=== PATIENT | male | born 1955 | race Caucasian/White ===

== ENCOUNTER 2017-10-06 10:39 | Observation (INO) | payer OTHER ==
[2017-10-06 12:10] LABS: Bilirubin Negative (Negative); Blood, Urine Negative (Negative); Glucose, Urine (Dipstick) Negative (Negative); Ketone, Urine Negative (Negative); Nitrite Negative (Negative); Protein, Urine (Dipstick) Negative (Neg-Trace); Urobilinogen 0.2 mg/dL (0.2-1.0)
[2017-10-06 12:15] LABS: #Basophils 0.2 thou/uL (0.0-0.2); #Eosinphils 0.2 thou/uL (0.0-0.7); #Lymphocytes 1.1 thou/uL (1.20-3.40); #Monocytes 0.7 thou/uL (0.11-0.59); #Neutrophils 10.8 thou/uL (1.40-6.50); %Basophils 1.7 % (0.0-1.0); %Eosinophils 1.2 % (0.0-10.0); %Lymphocytes 8.2 % (21.0-51.0); %Monocytes 5.1 % (0.0-10.0); Hematocrit 45.2 % (42.0-52.0); Mean Platelet Volume 8.5 fL (7.4-10.4); Red Blood Cell (RBC) Count 4.72 mill/uL (4.70-6.10); White Blood Cell (WBC) Count 12.9 thou/uL (4.8-10.8)
--- NOTE | 2017-10-06 12:22 | RAD ---
PORTABLE AP CHEST: Date: 10/06/17 HISTORY: Dizziness and nausea. COMPARISON: 06/20/17. FINDINGS: Postsurgical changes related to median sternotomy are again present. Cardiac silhouette is magnified by projection. Pulmonary vasculature is within normal limits. Lungs remain clear. There has been no i nterval change when compared to the prior exam. IMPRESSION: No acute cardiopulmonary process. POS: [facility]
[2017-10-06 12:41] LABS: ALT (SGPT) 17 U/L (8-55); AST (SGOT) 14 U/L (5-34); Alkaline Phosphatase 135 U/L (40-150); Anion Gap 12 mmol/L (10-20); BUN (Urea Nitrogen) 25 mg/dL (8.4-25.7); Bilirubin, Total 0.4 mg/dL (0.2-1.2); CK (CPK) 57 U/L (30-200); Calc. Creatinine Clearance 0 mL/min (70-130); Calcium 9.5 mg/dL (7.8-10.44); Carbon Dioxide 25 mmol/L (23-31); Chloride 104 mmol/L (98-107); Estimated GFR-MDRD 68; Globulin 3.9 g/dL (2.4-3.5); Lipase 11 U/L (8-78); Magnesium 2.5 mg/dL (1.6-2.6); Protein, Total 7.8 g/dL (5.8-8.1)
[2017-10-06 12:44] LABS: Troponin I Less than 0.010 ng/mL (< 0.028)
--- NOTE | 2017-10-06 13:11 | CT ---
HEAD CT WITHOUT CONTRAST: DATE: 10/06/17. COMPARISON: 02/05/12. HISTORY: Dizziness, weakness, and nausea. TECHNIQUE: Serial axial CT imaging at 5 mm intervals from vertex through the skull base without contrast. FINDINGS: No displaced calvarial fracture. No intracranial hemorrhage, midline shift, mass effect, or ventricu lar enlargement. IMPRESSION: No acute findings - stable head CT. POS: [facility]
[2017-10-06 14:07] LABS: Lactic Acid - Sepsis 1.5 mmol/L (0.5-2.2)
--- NOTE | 2017-10-06 15:21 | HP ---
PRIMARY CARE PROVIDER: FERNY Evans Referred to [facility] by [facility]. HISTORY OF PRESENT ILLNESS: The patient presented with a few hours of dizziness, some nausea, just f elt sick, then he had a sweat started about 8:00 a.m. today, states he still has a little bit of dizz iness. He says there was a little whirling, but it was not like the room was turning. He had no jah st pain, no shortness of breath. PAST MEDICAL HISTORY: Pertinent for coronary artery disease, coronary artery bypass graft in 2013. He states he has had 11 stents placed in. He had colon cancer in 2012 that was resected by Dr. Brett fields. He has hypertension, history of paroxysmal atrial fibrillation, gastroesophageal reflux disease, dyslipidemia. CURRENT MEDICATIONS: Plavix 75 mg a day, lisinopril 20 mg twice a day, Coreg 6.25 mg twice a day, La six 20 mg a day, aspirin 325 mg a day. ALLERGIES: AMBIEN, HYDROCODONE, DEMEROL, and PENICILLIN. SOCIAL HISTORY: Lives alone. No tobacco, no alcohol, occasionally uses marijuana He is . CODE STATUS: FULL. No surrogate decision maker. FAMILY HISTORY: Mother had breast cancer. Father in an MVA. He has multiple siblings with hea rt disease and diabetes. REVIEW OF SYSTEMS: General: No headaches or fainting. Eyes: No double vision, blurred vision, fla shing lights. Ears, Nose, and Throat: No ear pain or drainage. No nasal bleeding. No trouble swal lowing. No oral pain. Cardiac: No chest pain, orthopnea, or paroxysmal nocturnal dyspnea. Respira tory: No cough, wheezing, or asthma. Gastrointestinal: He has had no emesis, no abdominal pain, an d no diarrhea to along with his present illness. No melena. Genitourinary: No hematuria, dysuria, or frequency. Musculoskeletal: He states he swells in his legs when he does not have to take his La six. No particular discomforts or pain in his extremities at this time. Neurological: No strokes, seizures, or focal weakness. Psychiatric: No anxiety or depression. I discussed this with him at [facility], because his old records list anxiety, depression; he states he has none. Skin: He has got so me, what he calls old age, spots on his arms. No ecchymoses, no petechiae, no rash. Skin is warm an d dry. Heme/Lymph: He reports no tender or swollen lymph nodes under his arms or neck or his groin. PHYSICAL EXAMINATION: GENERAL: He is an alert, pleasant gentleman, in no distress. VITAL SIGNS: Blood pressure 145/86, pulse 62, respirations 20, temperature 97.8, O2 sat 95 on room a ir. EXAMINATION OF HEAD, EYES, EARS, NOSE, AND THROAT: Pupils are equal, round, and reactive to light. Extraocular movements are intact. Sclerae white. Tympanic membranes clear. Nose is clear. Oral mu cous membranes are wet. Dental hygiene is adequate. NECK: Supple, without jugular venous distention, adenopathy, thyromegaly. CHEST: Clear to auscultation and percussion. HEART: Regular rate and rhythm. First and second heart sounds are clear. There are no appreciated murmurs or gallops. ABDOMEN: Soft. Bowel sounds are normal. There is no hepatosplenomegaly, no mass, no rebound, no br uits. EXTREMITIES: Reveal no cyanosis, clubbing, or edema. PULSES: Carotid, radial, femoral, and dorsalis pedis pulses were palpable and symmetric. SKIN: Warm and dry without bruises or rash. HEME/LYMPH: Reveals no tender or swollen lymph nodes in the inguinal, cervical, or axillary region. NEUROLOGICAL: Reveals cranial nerves II-XII are intact. Deep tendon reflexes symmetric. Strength s ymmetric. LABORATORY AND X-RAY FINDINGS: EKG: Regular sinus rhythm with no acute ST-T abnormality. He does h ave a T-wave inversion in V2, reviewed by me. Chest x-ray, postop changes of median sternotomy. No cardiomegaly, no CHF, no infiltrate, reviewed by me. Comprehensive metabolic profile normal except f or a glucose of 145, CK-MB 1.5, troponin less than 0.01. BNP 37.7. Urine is clear. White count 12. 9, hemoglobin 14.5, platelet count 280,000. ADMITTING DIAGNOSES: 1. Acute onset dizziness. 2. Coronary artery disease. 3. Hypertension. 4. Dyslipidemia. PLAN: Telemetry, serial cardiac enzymes, repeat CBC and basic metabolic profile in the morning. Shruti ected home medicines. Continue aspirin.
[2017-10-06 15:55] LABS: Troponin I Less than 0.010 ng/mL (< 0.028)
[2017-10-06 17:57] VITALS: BMI 34.2
[2017-10-06] MEDS ORDERED: Ondansetron HCl/PF 4 MG/2 ML Vial IVP PRN (18:04)
[2017-10-06] MEDS ORDERED: Acetaminophen 325 MG TAB PO PRN (18:04)
[2017-10-06] MEDS: Carvedilol 6.25 MG TAB PO SCH (19:34)
[2017-10-06] MEDS: Lisinopril 20 MG TAB PO SCH (20:34)
[2017-10-06] MEDS ORDERED: Atorvastatin Calcium 40 MG TAB PO SCH (21:00)
[2017-10-06 21:13] LABS: Troponin I Less than 0.010 ng/mL (< 0.028)
[2017-10-07] MEDS ORDERED: traMADol HCl 50 MG TAB PO PRN (00:22)
[2017-10-07] MEDS ORDERED: Aspirin 325 MG TAB PO SCH ×3 (00:30→09:00)
[2017-10-07 01:07] LABS: Troponin I Less than 0.010 ng/mL (< 0.028)
[2017-10-07 05:06] LABS: Anion Gap 11 mmol/L (10-20); BUN (Urea Nitrogen) 26 mg/dL (8.4-25.7); Calc. Creatinine Clearance 116 mL/min (70-130); Carbon Dioxide 25 mmol/L (23-31); Chloride 102 mmol/L (98-107); Estimated GFR-MDRD 70
[2017-10-07 07:36] LABS: #Eosinphils 0.6 thou/uL (0.0-0.7); #Lymphocytes 2.4 thou/uL (1.20-3.40); #Monocytes 0.9 thou/uL (0.11-0.59); %Eosinophils 5.3 % (0.0-10.0); %Lymphocytes 20.4 % (21.0-51.0); %Monocytes 7.8 % (0.0-10.0); Hematocrit 42.6 % (42.0-52.0); Mean Platelet Volume 8.4 fL (7.4-10.4); Red Blood Cell (RBC) Count 4.55 mill/uL (4.70-6.10)
[2017-10-07 08:13] VITALS: BP 134/82; TEMP 97.7
--- NOTE | 2017-10-07 08:57 | DIS ---
PRIMARY CARE PROVIDER: Birgit Leigh DATE OF ADMISSION: 10/06/2017 DATE OF DISCHARGE: 10/07/2017 DISCHARGE DISPOSITION: Discharged home. FINAL DIAGNOSES: 1. Dizziness. 2. Hypertension. 3. Coronary artery disease. 4. Dyslipidemia. DISCHARGE MEDICATIONS: Pristiq 50 mg daily, aspirin 325 mg daily, Protonix 40 mg a day, Zestril 20 m g twice a day, Lasix 20 mg a day, Plavix 75 mg a day, Coreg 12.5 mg twice a day, Lipitor 40 mg a day, tramadol 25 mg p.o. q.i.d. p.r.n. ALLERGIES: DEMEROL, CODEINE, AMBIEN, PENICILLINS. CODE STATUS: Full. PENDING AT THE TIME OF DISCHARGE: Nothing. HOSPITAL COURSE: The patient referred to the [facility] by [facility] after presenting with a few hours of dizziness, a little nausea, a little sweat. He did not describe true vertigo. The patient stated that is what it felt like when he had his heart attack. He was re ferred to the [facility] for cardiac evaluation by the emergency room. His EKG reveal ed an inverted T-wave in V2, otherwise unremarkable. Cardiac enzymes were normal x4. Basic metaboli c profile revealed a sodium 134, creatinine of 26, otherwise normal. CBC showed a mild leukocytosis without a left shift of 12 to 12.9, hemoglobin 14.5 plus or minus, platelet count 280 and 252. The p atient has had no chest pain. He has some minimal dizziness. CONSULTATIONS: None. PROCEDURES: No procedures. Cardiac exam is normal. Vital signs have been stable. He has been discharged, told that he needs to see his PCP within a week. This morning he complains o f a toothache and asked for pain medicine. I have written a prescription for tramadol 25 mg q.i.d. p .r.n. for pain. He has been told that he needs to follow up with his PCP or a dentist for his tootha jah.
[2017-10-07] MEDS: Lisinopril 20 MG TAB PO SCH (08:59)
[2017-10-07] MEDS: Carvedilol 6.25 MG TAB PO SCH (08:59)
[2017-10-07] MEDS ORDERED: Clopidogrel Bisulfate 75 MG TAB PO SCH (09:00)
[2017-10-07] MEDS ORDERED: Furosemide 20 MG TAB PO SCH (09:00)
== END 2017-10-07 13:15 | disposition home or self-care (01) ==
LOC: ERS 10:39 → ERHOLD 14:35 → 2SE 17:37
PROVIDERS: ADMIT Internal Medicine; ATTEND Internal Medicine
DX: R42 Dizziness and giddiness (principal); I10 Essential (primary) hypertension; I25.10 Atherosclerotic heart disease of native coronary artery without angina pectoris; E78.5 Hyperlipidemia, unspecified; I48.0 Paroxysmal atrial fibrillation; K21.9 Gastro-esophageal reflux disease without esophagitis; Z79.02 Long term (current) use of antithrombotics/antiplatelets; Z79.82 Long term (current) use of aspirin; Z79.899 Other long term (current) drug therapy; Z88.5 Allergy status to narcotic agent; Z88.0 Allergy status to penicillin; Z88.8 Allergy status to other drugs, medicaments and biological substances; Z95.1 Presence of aortocoronary bypass graft; Z95.818 Presence of other cardiac implants and grafts; Z90.49 Acquired absence of other specified parts of digestive tract; Z85.038 Personal history of other malignant neoplasm of large intestine
CPT/HCPCS: 36415; 70450; 71010; 80048; 80053; 81003; 82550; 82553; 83605; 83690; 83735; 83880; 84484; 85025; 87040; 93005; G0378

== ENCOUNTER 2018-02-07 03:56 | Emergency (ER) | payer OTHER ==
[2018-02-07 05:17] LABS: #Eosinphils 0.2 thou/uL (0.0-0.7); #Lymphocytes 0.9 thou/uL (1.20-3.40); #Monocytes 0.9 thou/uL (0.11-0.59); #Neutrophils 12.9 thou/uL (1.40-6.50); %Eosinophils 1.3 % (0.0-10.0); %Lymphocytes 6.2 % (21.0-51.0); %Monocytes 6.2 % (0.0-10.0); %Neutrophils 86.3 % (42.0-75.0); Hemoglobin 13.8 g/dL (14.0-18.0); Mean Corpuscular Hemoglobin 30.2 pg (27.0-31.0); Mean Corpuscular Volume 91.4 fl (80.0-94.0); Mean Platelet Volume 8.7 fL (7.4-10.4); Platelet Count 269 thou/uL (130-400); RBC Distribution Width 12.5 % (11.5-14.5); Red Blood Cell (RBC) Count 4.58 mill/uL (4.70-6.10)
[2018-02-07 05:23] LABS: Anion Gap 14 mmol/L (10-20); BUN (Urea Nitrogen) 15 mg/dL (8.4-25.7); Calc. Creatinine Clearance 0 mL/min (70-130); Calcium 9.3 mg/dL (7.8-10.44); Carbon Dioxide 21 mmol/L (23-31); Chloride 107 mmol/L (98-107); Estimated GFR-MDRD 77; Glucose 200 mg/dL (80-115); Potassium 4.1 mmol/L (3.5-5.1); Sodium 138 mmol/L (136-145)
[2018-02-07 05:30] LABS: CKMB 0.8 ng/mL (0-6.6); Troponin I Less than 0.010 ng/mL (< 0.028)
[2018-02-07] MEDS ORDERED: Ketorolac Tromethamine 30 MG/ML VIAL ONE (05:34)
[2018-02-07] MEDS ORDERED: Labetalol HCl 100 MG/20 ML VIAL ONE (06:56)
--- NOTE | 2018-02-07 09:01 | RAD ---
AP VIEW CHEST: HISTORY: Chest pain. FINDINGS: AP view chest is obtained on 02/07/18. Comparison is made to previous exam from 10/06/17. AP view chest demonstrates sternotomy wires seen. Cardiomegaly is seen. Pulmonary vascular congesti on is seen. EKG leads are seen over the chest. There is some blunting of the left costophrenic angl e compatible with a small left-sided pleural effusion. IMPRESSION: 1. Small left-sided pleural effusion. 2. Cardiomegaly and pulmonary vascular congestion. POS: [facility]
--- NOTE | 2018-02-07 09:02 | CT ---
PRELIMINARY REPORT/[facility]/EMERGENTY AFTER-HOURS PROCEDURE CT Chest Without Intravenous Contrast CLINICAL HISTORY: 62 years old, male; Injury or trauma; Fall; Initial encounter; Abrasion; Patient HX: M62 presents to ed C/O r sided cp that began this am while pt was asleep. Pt reports pain exacerbation on deep breath es. Pt reports falling on r side 2 days ago on unknown surface. Pt denies any other complaints or peggy n. Pt denies smoking cigarettes and ETOH abuse. Pt denies loc or head injury during fall. TECHNIQUE: Axial computed tomography images of the chest without intravenous contrast. Coronal reformatted images were created and reviewed. COMPARISON: No relevant prior studies available. FINDINGS: Lungs: Mild atelectasis is seen on the left. A nodule measuring 3 mm is seen in the right upper lobe. A nodule measuring 3 mm is seen in the right lung base. A nodule measuring 5 mm is seen in the left upper lobe. A nodule measuring 3 mm is seen in the left upper lobe. Pleural space: Small right pleural effusion with associated atelectasis is seen. No pneumothorax. Heart: Coronary artery calcifications are noted. No significant pericardial effusion. Bones/joints: There are mild degenerative changes present in the spine. There are sternal wires consi stent with previous sternotomy incision. No acute fracture. No dislocation. Soft tissues: A subcutaneous cyst measuring 3 x 2 x 2.5 cm is noted the left posterior chest wall. Tw o smaller subcutaneous nodules are seen in the posterior chest wall largest measuring 1 cm. Vasculature: The ascending aorta at the level of the right pulmonary artery measures 3.5 cm. The main pulmonary artery measures 2.7 cm. Mild atherosclerotic calcifications affect the aorta. No thoracic aortic aneurysm. Lymph nodes: Unremarkable. No enlarged lymph nodes. Gallbladder and bile ducts: The gallbladder is underdistended. Stomach and bowel: Moderate amount of stool is noted in the colon. Intraperitoneal space: No evidence of free air in the abdomen. IMPRESSION: 1. No acute findings. 2. Small right pleural effusion with associated atelectasis. 3. Several lung nodules the largest measuring 5 mm. For low-risk patients, no follow-up is necessary. For high-risk patients (smoking history or other known risk factors) an optional chest CT at 12 michael hs could be performed. 4. Several subcutaneous nodules in the posterior chest wall may represent sebaceous cysts. Infection is not excluded. Thank you for allowing us to participate in the care of your patient. Dictated and Authenticated by: Shira Rodriguez MD 02/07/2018 6:36 AM Central Time ([place] & [place]) FINAL REPORT NONCONTRAST ENHANCED CT IMAGES OF CHEST: HISTORY: A 62-year-old with a history of fall. FINDINGS: Noncontrast-enhanced CT of the chest is performed. Final report. I concur with the dictation from [facility]. Coronary artery stent seen. Sternotomy wires. Sternotomy wires seen. A small right-sided pleural effusion is seen. Pulmonary parenchymal nodules seen. No evidence of si gnificant obvious masses seen otherwise. No evidence of lymphadenopathy seen. No obvious evidence o f rib fracture is seen. POS: [facility]
== END 2018-02-07 07:05 | disposition home or self-care (01) ==
LOC: ERS 03:56
DX: R09.1 Pleurisy (principal); E78.5 Hyperlipidemia, unspecified; I25.2 Old myocardial infarction; K21.9 Gastro-esophageal reflux disease without esophagitis; I10 Essential (primary) hypertension; Z79.02 Long term (current) use of antithrombotics/antiplatelets; Z85.038 Personal history of other malignant neoplasm of large intestine; Z79.899 Other long term (current) drug therapy
CPT/HCPCS: 71045; 71250; 80048; 82553; 84484; 85025; 93005; 96374; 96375; J1885

== ENCOUNTER 2018-03-19 12:51 | Outpatient (CLI) | payer OTHER ==
--- NOTE | 2018-03-19 15:07 | RAD ---
CHEST TWO VIEWS: History: Empyema. Comparison: 02-07-18 Correlation: Chest CT 02-07-18 FINDINGS: Sternotomy wires are re-demonstrated. Normal cardiac silhouette. The pulmonary vessels and hilum are normal. Minimal blunting to the right costophrenic angle. Patchy opacities in the right lower lobe. T here is a right apical opacity. No pneumothorax or osseous abnormality. IMPRESSION: Right lower lobe and right upper lobe opacification suggesting airspace disease. Better interrogation with CT is recommended. POS: [facility]
== END 2018-03-19 12:52 | disposition home or self-care (01) ==
LOC: RAD 12:51
PROVIDERS: ATTEND Thoracic Surgery (Cardiothoracic Vascular Surgery)
DX: J86.9 Pyothorax without fistula (principal)
CPT/HCPCS: 71046

== ENCOUNTER 2019-02-17 06:55 | Day surgery (SDC) | payer OTHER ==
[2019-02-16 14:58] VITALS: BMI 33.9
[2019-02-17] MEDS ORDERED: Ketamine 50 MG/ML (10ML VIAL) ONE (09:16)
--- NOTE | 2019-02-17 12:02 | OP ---
DATE OF PROCEDURE: 02/17/2019 PROCEDURE PERFORMED: EGD and colonoscopy. PREPROCEDURE DIAGNOSES: 1. Vague dysphagia. 2. History of colorectal cancer. POSTPROCEDURE DIAGNOSES: 1. Normal EGD, anatomy is questionable for previous fundoplication, dilatation of 54-Tristanian Johnson dilator with no effect. Otherwise, normal EGD. 2. Nine colon polyps removed, three in the ascending, two in the transverse, two in the descending, two in the sigmoid, all removed by hot snare polypectomy. 3. Normal anastomosis in the sigmoid colon consistent with previous colon resection. RECOMMENDATIONS: 1. Ultrasound of liver secondary to elevated AFP and CEA secondary to prior history of colon cancer. 2. Repeat colonoscopy in 1 year. 3. Follow up in my office on March 10 for results. ANESTHESIA: TIVA. PROCEDURE IN DETAIL: The patient was informed of the risks, benefits, and possible complications of endoscopy including perforation, bleeding, reaction to medication, aspiration, and perforation. The patient has signed informed consent. The patient was then brought to the endoscopy suite, where he was sedated in gradual fashion. Once he was comfortable, a bite block was placed inside the orifice. The endoscope was advanced through the esophagus, stomach, and the second and third portion of the duodenum and slowly removed. There was good visualization of the mucosa. The esophagus had normal-appearing mucosa. No evidence of Stewart's or strictures. Retroflexed views of the cardia of the stomach appeared to possibly have a previous fundoplication of some sort. There were no masses or lesions. There was no evidence of hiatal hernias. The remainder of the stomach appeared normal in forward and retroflexed views with good distention. The duodenum was normal in the third portion. The scope was then removed with regard to the patient's vague dysphagia. Dilatation was performed with 54-Tristanian Johnson dilator. Second look revealed no effect. The scope was then removed. The patient tolerated the procedure well and returned to the room. The rectal exam was performed, which was normal. The endoscope was then advanced through the anal canal through the colon and cecum was identified by ileocecal valve and appendiceal orifice. The prep was fairly good. We did irrigate some about 200-300 mL to clear the prep fully. There were 9 small polyps through the colon, three ranging in size from 3 to 6 mm in the ascending colon that were removed by hot snare polypectomy, two in the transverse colon that were 5 mm in size and sessile and were removed by hot snare polypectomy, two in the descending colon there were 3 to 5 mm and removed by hot snare polypectomy, and two in the sigmoid colon, large which was 10 mm in size, small which was about 6 mm in size, and these were removed by hot snare polypectomy as well. There was good hemostasis. No bleeding or complications. Retroflexed views were normal. The scope was removed. The patient tolerated the procedure well. There were no complications. Job ID: [id number]
[2019-02-17] MEDS ORDERED: PHENYLEPHRINE-NS 100 MCG/ML 10 ML SYRINGE ONE (15:31)
[2019-02-17] MEDS ORDERED: PROPOFOL 200 MG/20 ML VIAL ONE (15:31)
[2019-02-17] MEDS ORDERED: ePHEDrine 50 MG/ML VIAL ONE (15:31)
== END 2019-02-17 12:00 | disposition home or self-care (01) ==
LOC: SDC 06:55
PROVIDERS: ATTEND Internal Medicine Gastroenterology
PROC: 0DBM8ZX Excision of Descending Colon, Via Natural or Artificial Opening Endoscopic, Diagnostic (ICD-10-PCS; principal; 2019-02-17)
PROC: 0DBL8ZX Excision of Transverse Colon, Via Natural or Artificial Opening Endoscopic, Diagnostic (ICD-10-PCS; principal; 2019-02-17)
PROC: 0DBK8ZX Excision of Ascending Colon, Via Natural or Artificial Opening Endoscopic, Diagnostic (ICD-10-PCS; principal; 2019-02-17)
PROC: 0DJ08ZZ Inspection of Upper Intestinal Tract, Via Natural or Artificial Opening Endoscopic (ICD-10-PCS; principal; 2019-02-17)
PROC: 0D757ZZ Dilation of Esophagus, Via Natural or Artificial Opening (ICD-10-PCS; principal; 2019-02-17)
PROC: 0DBN8ZX Excision of Sigmoid Colon, Via Natural or Artificial Opening Endoscopic, Diagnostic (ICD-10-PCS; principal; 2019-02-17)
DX: Z12.11 Encounter for screening for malignant neoplasm of colon (principal); D12.3 Benign neoplasm of transverse colon; D12.4 Benign neoplasm of descending colon; D12.5 Benign neoplasm of sigmoid colon; K63.5 Polyp of colon; R13.10 Dysphagia, unspecified; K21.9 Gastro-esophageal reflux disease without esophagitis; I25.2 Old myocardial infarction; I25.10 Atherosclerotic heart disease of native coronary artery without angina pectoris; I10 Essential (primary) hypertension; E78.00 Pure hypercholesterolemia, unspecified; Z85.038 Personal history of other malignant neoplasm of large intestine; Z79.02 Long term (current) use of antithrombotics/antiplatelets; Z79.82 Long term (current) use of aspirin; Z79.899 Other long term (current) drug therapy; Z88.0 Allergy status to penicillin; Z88.5 Allergy status to narcotic agent; Z88.8 Allergy status to other drugs, medicaments and biological substances; Z90.49 Acquired absence of other specified parts of digestive tract; Z95.1 Presence of aortocoronary bypass graft
CPT/HCPCS: 36415; 82378; 88305; J2704; J3490

== ENCOUNTER 2019-02-26 09:47 | Outpatient (CLI) | payer OTHER ==
--- NOTE | 2019-02-26 11:40 | ULT ---
RIGHT UPPER QUADRANT ULTRASOUND: HISTORY: Abnormal LFTs. FINDINGS: Coarse liver echogenicity, evidence for fatty change. The gallbladder demonstrates no gallstones, wa ll thickening, edema, or pericholecystic fluid. There appears to be very minimal sludge within the d ependent portion of the gallbladder. The common bile duct is 0.3 cm. Visualized pancreas and right kidney are unremarkable. IMPRESSION: Evidence for fatty liver. Possible mild gallbladder sludge without evidence of gallstones. POS: [facility]
== END 2019-02-26 09:48 | disposition home or self-care (01) ==
LOC: BICULT 09:47
PROVIDERS: ATTEND Internal Medicine Gastroenterology
DX: R94.5 Abnormal results of liver function studies (principal); K76.0 Fatty (change of) liver, not elsewhere classified
CPT/HCPCS: 76705

== ENCOUNTER 2019-04-26 10:12 | Outpatient (CLI) | payer OTHER ==
--- NOTE | 2019-04-26 12:26 | RAD ---
CHEST 2 VIEWS: Date: 04/26/19 HISTORY: Shortness of breath. COMPARISON: 06/20/17. FINDINGS: Heart size within normal limits. There are atherosclerotic changes of the aorta. Postop sternotomy ch anges are present. Lungs are clear of any infiltrative process. Some slight blunting to the right cos tophrenic angle has developed since the previous study. Review is made of an additional 04/08/19 [facility] t x-ray, which was a portable exam, and shows that blunting to be present on that study. IMPRESSION: Blunting to right costophrenic angle suggesting a small pleural effusion versus pleural thickening. S table appearance since 04/08/19. POS: [facility]
== END 2019-04-26 10:13 | disposition home or self-care (01) ==
LOC: RAD-FRANK 10:12
PROVIDERS: ATTEND Nurse Practitioner Family
DX: R06.02 Shortness of breath (principal)
CPT/HCPCS: 71046

== ENCOUNTER 2019-05-27 08:35 | Outpatient (CLI) | payer OTHER ==
--- NOTE | 2019-05-27 12:55 | CT ---
CT ABDOMEN AND PELVIS WITH CONTRAST: Comparison: 12-10-13 History: Right lower quadrant abdominal pain. History of weight loss and colon cancer. Technique: Multiple contiguous axial images were obtained in a CT of the abdomen and pelvis with cont rast. PO contrast was administered. Coronal reformats were performed. FINDINGS: There is a 2.3 cm hypodense region in the right kidney which may represent a cyst. This was not defin itely seen on the prior examination. The liver, gallbladder, left kidney, adrenal glands, spleen and pancreas are unremarkable. No free air, free fluid, or stranding changes are seen in the abdomen or p danyel. An anastomotic staple line is seen in the sigmoid colon. The small bowel is normal in caliber. The ap pendix is normal. No abdominal or pelvic lymphadenopathy are seen. Atherosclerotic calcifications are seen in the aorta. Degenerative changes are seen in the spine and hips. The visualized inferior thorax and abdominal wal l soft tissues are unremarkable. IMPRESSION: 1. No evidence of recurrent or metastatic disease. 2. Right renal hypodensity most likely represents a cyst. POS: [facility]
== END 2019-05-27 08:36 | disposition home or self-care (01) ==
LOC: BICCT 08:35
PROVIDERS: ATTEND Physician Assistant Medical
DX: R10.31 Right lower quadrant pain (principal); R63.4 Abnormal weight loss; K21.9 Gastro-esophageal reflux disease without esophagitis; N28.89 Other specified disorders of kidney and ureter; Z85.038 Personal history of other malignant neoplasm of large intestine
CPT/HCPCS: 74177; 82565

== ENCOUNTER 2019-07-20 21:47 | Observation (INO) | payer OTHER ==
--- NOTE | 2019-07-20 22:22 | RAD ---
Exam: Chest one view HISTORY:Chest pain x24 hours, radiating to left arm Comparison: 04/08/2019, 04/26/2019 FINDINGS: Cardiac silhouette:Upper normal cardiac silhouette. Sternotomy wires are noted. Aorta: Unremarkable Pulmonary vessels: Normal Costophrenic angles: Clear LUNGS: No masses or consolidation. Pneumothorax: None Osseous abnormalities: None IMPRESSION: No acute cardiopulmonary process.
[2019-07-20 22:34] LABS: #Eosinphils 0.2 thou/uL (0.0-0.7); #Lymphocytes 1.5 thou/uL (1.20-3.40); #Monocytes 0.7 thou/uL (0.11-0.59); %Basophils 0.5 % (0.0-1.0); %Eosinophils 2.2 % (0.0-10.0); %Lymphocytes 14.4 % (21.0-51.0); %Monocytes 6.6 % (0.0-10.0); %Neutrophils 76.4 % (42.0-75.0); Hemoglobin 13.7 g/dL (14.0-18.0); Mean Corpuscular HGB CONC 32.9 g/dL (32.0-36.0); Mean Corpuscular Hemoglobin 29.4 pg (27.0-31.0); Mean Corpuscular Volume 89.2 fL (78.0-98.0); Mean Platelet Volume 8.7 fL (7.4-10.4); Platelet Count 273 thou/uL (130-400); RBC Distribution Width 13.1 % (11.5-14.5); Red Blood Cell (RBC) Count 4.67 mill/uL (4.70-6.10); White Blood Cell (WBC) Count 10.5 thou/uL (4.8-10.8)
[2019-07-20 22:56] LABS: ALT (SGPT) 41 U/L (8-55); AST (SGOT) 24 U/L (5-34); Albumin 3.9 g/dL (3.4-4.8); Alkaline Phosphatase 187 U/L (40-110); Anion Gap 13 mmol/L (10-20); BUN (Urea Nitrogen) 19 mg/dL (8.4-25.7); Bilirubin, Total 0.5 mg/dL (0.2-1.2); CK (CPK) 23 U/L (30-200); Calc. Creatinine Clearance 0 mL/min (70-130); Carbon Dioxide 17 mmol/L (23-31); Chloride 109 mmol/L (98-107); Estimated GFR-MDRD 71; Globulin 2.8 g/dL (2.4-3.5); Glucose 114 mg/dL (80-115); Potassium 3.8 mmol/L (3.5-5.1); Protein, Total 6.7 g/dL (5.8-8.1); Sodium 135 mmol/L (136-145)
[2019-07-21 01:00] VITALS: BMI 29.8
[2019-07-21] MEDS ORDERED: Furosemide 20 MG TAB PO PRN (01:23)
[2019-07-21] MEDS ORDERED: Non-Formulary Item 1 EACH (Ranitidine Hcl [Zantac 75] 75 MG) PO PRN (01:23)
[2019-07-21] MEDS ORDERED: Acetaminophen 325 MG TAB PO PRN (01:23)
[2019-07-21] MEDS ORDERED: Senokot 8.6 MG TAB PO PRN (01:23)
[2019-07-21] MEDS ORDERED: Magnesium Citrate 300 ML BOT PO PRN (01:30)
[2019-07-21] MEDS ORDERED: Famotidine 20 MG TAB PO PRN (01:48)
[2019-07-21] MEDS: ALPRAZolam 0.25 MG TAB PO PRN ×2 (01:54→09:09)
[2019-07-21] MEDS ORDERED: Diazepam 5 MG TAB PO PRN (07:27)
[2019-07-21] MEDS ORDERED: Ondansetron ODT 4 MG TAB PO PRN (07:28)
[2019-07-21] MEDS ORDERED: Artificial Tears 18 DROP/0.9 ML EA EYE PRN (07:28)
[2019-07-21] MEDS ORDERED: Sodium Chloride 0.65% Nasal 44 ML BOT EA NARE PRN (07:28)
[2019-07-21] MEDS ORDERED: Nitroglycerin 0.4 MG TAB (25 Tab Bottle) SL PRN (07:28)
[2019-07-21] MEDS ORDERED: Acetaminophen 500 MG TAB PO PRN (07:28)
[2019-07-21] MEDS ORDERED: Bisacodyl 10 MG SUPP PR PRN (07:28)
[2019-07-21] MEDS ORDERED: Calcium Carbonate 500 MG ChewTAB PO PRN (07:28)
[2019-07-21] MEDS ORDERED: Diabetic Tussin 200 MG/10 ML UDCUP PO PRN (07:28)
[2019-07-21] MEDS ORDERED: hydrALAZINE 20 MG/ML VIAL SLOW IVP PRN (07:28)
[2019-07-21] MEDS ORDERED: Ondansetron PF 4 MG/2 ML Vial IVP PRN (07:28)
[2019-07-21] MEDS ORDERED: Loratadine 10 MG TAB PO PRN (07:28)
[2019-07-21] MEDS ORDERED: Cepastat Lozenges 1 LOZ PO PRN (07:28)
[2019-07-21] MEDS ORDERED: Senokot S 8.6-50 MG TAB PO PRN (07:28)
[2019-07-21] MEDS ORDERED: Loperamide HCl 2 MG CAP PO PRN (07:28)
[2019-07-21] MEDS: Aspirin Chewable 81 MG TAB PO SCH (08:59)
[2019-07-21] MEDS: Lisinopril 2.5 MG TAB PO SCH ×2 (08:59→21:12)
[2019-07-21] MEDS: Carvedilol 3.125 MG TAB PO SCH ×2 (08:59→21:12)
[2019-07-21] MEDS: Atorvastatin Calcium 40 MG TAB PO SCH (08:59)
[2019-07-21] MEDS: Enoxaparin Sodium 40 MG/0.4 ML SYRINGE SC SCH (09:00)
[2019-07-21] MEDS ORDERED: DESVENLAFAXINE SUCCINATE PO SCH (09:00)
[2019-07-21] MEDS ORDERED: Aspirin 325 MG TAB PO SCH (09:00)
[2019-07-21] MEDS ORDERED: Non-Formulary Item 1 EACH (Fluticasone/Salmeterol [Advair Diskus 250/50] 1 PUFF) INH SCH (09:00)
[2019-07-21] MEDS: Desvenlafaxine Succinate [Pristiq] 50 MG PO SCH (09:09)
[2019-07-21] MEDS: Mometasone/Formoterol 120 PUFF INHALER INH SCH ×2 (11:11→18:24)
--- NOTE | 2019-07-21 12:40 | HP ---
PRIMARY CARE PHYSICIAN: Dr. Birgit Argueta. REASON FOR ADMISSION: Chest pain. HISTORY OF PRESENT ILLNESS: A 64-year-old male, who has underlying history of hypertension, dyslipidemia, and coronary artery disease, who presented to emergency room for evaluation of chest pain. The patient reports that he has recurrent chest pain, but at this time, the episode was severe. He was experiencing left-sided chest pain, which was radiating to left shoulder and left arm, about 6/10 in intensity associated with some nausea. There was no specific aggravating or relieving factor and Paramedics was called and the patient was given aspirin and nitroglycerin. His pain subsided. The patient denies any palpitation, dizziness, or syncope. He denies any orthopnea, PND, or leg swelling. The patient does not have any significant physical activity, so he is not sure about exertion making his pain worse. The patient reports that he is taking all his medication as prescribed. This patient had a stress test done in March 2019 and at that time, stress test reported as hypokinesia of the inferior wall and akinesia of the septum with fixed defect. Echocardiography obtained at that time, which showed normal EF. This patient has recurrent chest pain and that is why we decided to keep this patient in the hospital for observation and cardiology evaluation. So far, electrocardiogram is unremarkable and cardiac enzymes are negative. REVIEW OF SYSTEMS: CONSTITUTIONAL: Negative for weight loss or gain, ability to conduct usual activities. SKIN: Negative for rash, itching. EYES: Negative for double vision, pain. ENT/MOUTH: Negative for nose bleeding, neck stiffness, pain, tenderness. CARDIOVASCULAR: Negative for palpitations, dyspnea on exertion, orthopnea. RESPIRATORY: Negative for shortness of breath, wheezing, cough, hemoptysis, fever or night sweats. GASTROINTESTINAL: Negative for poor appetite, abdominal pain, heartburn, nausea, vomiting, constipation, or diarrhea. GENITOURINARY: Negative for urgency, frequency, dysuria, nocturia. MUSCULOSKELETAL: Negative for pain, swelling. NEUROLOGIC/PSYCHIATRIC: Negative for anxiety, depression. ALLERGY/IMMUNOLOGIC: Negative for skin rash, bleeding tendency. Please see my HPI for pertinent positives and negatives. All other review of systems reviewed and negative except as mentioned in HPI. PAST MEDICAL HISTORY: Hypertension, dyslipidemia, coronary artery disease with stent, history of AK, gastroesophageal reflux disease, chronic kidney disease stage 3, history of nephrolithiasis, and history of colon cancer. Benign enlargement of prostate, asthma/COPD. PAST SURGICAL HISTORY: Colon resection, cardiac catheterization, colonoscopy, and EGD. PAST PSYCHIATRIC HISTORY: Anxiety and depression. SOCIAL HISTORY: The patient lives at home. He is . No history of alcohol abuse. He abuses marijuana intermittently. He denies any smoking. FAMILY HISTORY: Positive for heart disease. EMERGENCY ROOM COURSE: Reviewed. ALLERGIES: CODEINE, MEPERIDINE, AMBIEN, AND PENICILLIN. CURRENT HOME MEDICATIONS: 1. Aspirin 81 mg daily. 2. Lipitor 40 mg daily. 3. Coreg 3.125 mg b.i.d. 4. Plavix 75 mg at bedtime. 5. Pristiq 50 mg daily. 6. Diazepam 5 mg p.o. nightly p.r.n. 7. Advair 1 inhalation b.i.d. 8. Lasix 20 mg at bedtime p.r.n. 9. Imdur 60 mg daily. 10. Lisinopril 2.5 mg b.i.d. 11. Melatonin one tablet p.o. nightly. 12. Protonix 40 mg at bedtime. 13. Zantac 75 mg daily. 14. Flomax 0.4 mg p.o. at bedtime. PHYSICAL EXAMINATION: VITAL SIGNS: On arrival, blood pressure 118/85, pulse rate 104, respiratory rate 18, temperature 98.0, and saturation 98% on room air. Weight 68 kg. GENERAL: The patient is currently alert and awake, in no obvious acute distress. HEENT: Head; normocephalic and atraumatic. Eyes; pupils are round and reactive to light. Extraocular muscle intact. ENT, oropharynx within normal limits. Moist mucous membranes. No oral lesion. No pharyngeal erythema. No exudate. NECK: Supple. No JVD. No thyromegaly. No carotid bruit. No jugular venous distention. LUNGS: Clear to auscultation without any rhonchi or rales. CARDIAC: S1 and S2, regular without any murmur. No gallop. No rub. ABDOMEN: Soft. Bowel sounds present. Nontender. Nondistended. No organomegaly. No mass. No suprapubic tenderness. BACK: Examination unremarkable. No CVA tenderness. EXTREMITIES: Upper extremity, passive movement of all joints are normal. Lower extremity, no edema. Good distal pulsation. SKIN: No skin rash. HEMATOLOGIC: No lymphadenopathy. NEUROLOGIC: Nonfocal examination. SIGNIFICANT LABORATORY DATA: CBC; WBC 10.5, hemoglobin 13.7, and platelets are 273. BMP; sodium 135, potassium 3.8, chloride 109, carbon dioxide 17, BUN 19, creatinine 1.05, glucose 114, and calcium 9.0. LFT; AST 24, ALT 41, alkaline phosphatase 187, albumin 3.9. Troponin, negative x3. Chest x-ray, unremarkable. EKG showing normal sinus rhythm, nonspecific ST-T changes. ASSESSMENT AND PLAN: 1. Recurrent chest pain. The patient's current chest pain episode is atypical anginal. EKG is nonspecific and cardiac enzyme negative x3. He already had stress test done in March 2019 and echocardiography during that. He has underlying hypokinesia of the septum. He has significant coronary artery disease history and that is why we will consult Cardiology for their opinion. Meanwhile, we will continue with aspirin 81 mg daily, Plavix 75 mg daily, Coreg 3.125 mg b.i.d., and lisinopril 2.5 mg b.i.d. along with Imdur 60 mg daily. 2. Coronary artery disease with history of stent. Continue medical treatment as mentioned in problem #1. Cardiology has been consulted. 3. Hypertension. Continue Coreg, lisinopril, and Imdur as mentioned in problem #1. 4. Gastroesophageal reflux disease. Continue Protonix 40 mg at bedtime and Zantac on p.r.n. basis. 5. Chronic obstructive pulmonary disease/asthma. Continue Dulera 2 puff inhalation b.i.d. 6. Anxiety and depression. Continue the patient's home medication; Pristiq and diazepam as needed. 7. Benign enlargement of prostate. Continue Flomax 0.4 mg p.o. daily. 8. Deep venous thrombosis prophylaxis. Lovenox 40 mg subcu daily. 9. Gastrointestinal prophylaxis, Protonix 40 mg p.o. at bedtime. CODE STATUS: The patient is full code. DISPOSITION PLAN: Based on Cardiology recommendation, we will observe him 24 hours and further evaluation as per Cardiology. If he has no chest pain entire day today and then, we will consider discharging him home if there is no plan for cardiac catheterization. Job ID: [id number]
[2019-07-21] MEDS ORDERED: Clopidogrel Bisulfate 75 MG TAB PO SCH (21:00)
[2019-07-21] MEDS ORDERED: Melatonin 3 MG TAB PO SCH (21:00)
[2019-07-21] MEDS ORDERED: Tamsulosin HCl 0.4 MG CAP PO SCH (21:00)
--- NOTE | 2019-07-21 21:56 | CON ---
DATE OF CONSULTATION: 07/21/2019 INDICATION FOR CONSULTATION: A 64-year-old with history of known coronary artery disease, previous angioplasty and stent placements multiple times and also bypass surgery. He apparently recently was seen at [facility] [place] about a month ago and had also a two-day stay where apparently some type of cardiac workup was performed, but he cannot remember whether or not he had a cardiac catheterization and also does not remember whether he had a stress test. He did have a stress test here at [facility] in March of 2019, which showed no evidence of ischemia. Also due to chest pain at that time, he had inferior wall hypokinesis and septum was akinetic, ejection fraction was 55%. He also had an echocardiogram, which showed a normal ejection fraction and no other significant abnormalities were noted. At this time, he has been admitted again with chest pain, which he says is in the anterior chest, radiates to the left arm. He also becomes diaphoretic. He does also have a history of anxiety. Troponins are negative x3. EKG is unremarkable. At this time, he has had no further chest pain since being admitted to the hospital. We will await the records from [facility] to determine whether or not he has had any cardiac catheterization recently and also whether or not the stress test there was abnormal. PAST MEDICAL HISTORY: Significant for coronary artery disease as noted above with stents and bypass surgery, history of anxiety, diabetes, hypertension, dyslipidemia, history of colon cancer, COPD, and chronic kidney disease. MEDICATIONS: Prior to admission included: 1. Aspirin. 2. Lipitor 40 mg daily. 3. Coreg 3.125 mg b.i.d. 4. Plavix 75 mg daily. 5. Pristiq 50 mg daily. 6. Diazepam 5 mg p.r.n. He no longer takes this medicine as he could not tolerate it. 7. Advair inhalation b.i.d. 8. Lasix 20 mg q.p.m. 9. Imdur 60 mg daily. 10. Lisinopril 2.5 mg b.i.d. 11. Melatonin q.p.m. 12. Protonix 40 mg q.p.m. 13. Zantac 75 mg daily. 14. Flomax 0.4 mg p.o. q.p.m. ALLERGIES: ALLERGIC TO PENICILLIN, ZOLPIDEM, CODEINE AND DEMEROL. FAMILY HISTORY: Noncontributory. REVIEW OF SYSTEMS: Mainly he complains of fatigue and anxiety as well as intermittent chest discomfort, which has been an ongoing problem, otherwise he had no significant complaints on the review of systems. PHYSICAL EXAMINATION: GENERAL: Reveals a well-developed, well-nourished, somewhat unkept gentleman who is in no acute distress at this time. He is alert he is oriented. VITAL SIGNS: Stable. Blood pressure is 110/69. He is afebrile, respiratory rate 16, heart rate is 94 and regular, O2 saturation is 97%. HEENT: Shows the head to be normocephalic and atraumatic. Carotid pulses are present without any bruits. CHEST: Actually clear to auscultation without rales, rhonchi, or wheezing. CARDIOVASCULAR: Reveals a regular rate and rhythm. He has normal S1, S2. I cannot hear an S3 nor an S4. There were no significant murmurs, heaves, thrills, bruits, or rubs. He has a well-healed midline surgical incision after median sternotomy. ABDOMEN: Soft and nontender. Positive bowel sounds are present. EXTREMITIES: Show no clubbing, cyanosis, or edema. Pedal pulses are somewhat decreased. It was difficult to palpate even a right femoral pulse, but it is present. Did not hear any significant bruits. NEUROLOGIC: The patient appears to be intact. SKIN: Warm and dry at this time. IMAGING: EKG is as noted shows a normal sinus rhythm with an old inferior myocardial infarction. Otherwise, there were no significant abnormalities. No indication of ischemia. His enzymes are negative. LABORATORY DATA: Shows a potassium of 3.8, BUN was 19 with a creatinine 1.05. Sodium was 135, he did have elevated alkaline phosphatase at 187. His hemoglobin was 13.7 and WBC of 10.5. IMPRESSION: 1. Elderly gentleman with repeat bouts of chest pain with known coronary artery disease as noted above. We will await the records from [facility] to determine exactly what has been done thus far. If he had a recent cardiac catheterization, it would be the best to observe the results of that prior to proceeding with repeat cardiac catheterization. 2. Diabetes is to be dealt with by the primary care service and at this time his blood sugar seems to be in very good control. His blood sugar was 114. 3. Hypertension. This is also under reasonable control at this time. We will continue his present medications. 4. Dyslipidemia. We would also continue his statin medications. 5. Chronic obstructive pulmonary disease. This appears to be stable at this time. 6. History of anxiety. He may need to have other medications for his anxiety as this may be actually the etiology of his discomfort. 7. Shortness of breath, which he complains of, which is minimal exertion, could not see any significant etiology for the shortness of breath at this time. We are more than happy to continue to follow the patient with you and further recommendations will depend on the results that were obtained from [facility]. Job ID: [id number]
[2019-07-22] MEDS: ALPRAZolam 0.25 MG TAB PO PRN (02:15)
[2019-07-22 04:47] LABS: #Eosinphils 0.3 thou/uL (0.0-0.7); #Lymphocytes 1.8 thou/uL (1.20-3.40); #Monocytes 0.9 thou/uL (0.11-0.59); #Neutrophils 7.2 thou/uL (1.40-6.50); %Basophils 0.3 % (0.0-1.0); %Eosinophils 3.2 % (0.0-10.0); %Lymphocytes 17.8 % (21.0-51.0); %Monocytes 9.1 % (0.0-10.0); %Neutrophils 69.6 % (42.0-75.0); Hemoglobin 12.9 g/dL (14.0-18.0); Mean Corpuscular HGB CONC 33.5 g/dL (32.0-36.0); Mean Corpuscular Hemoglobin 30.4 pg (27.0-31.0); Mean Corpuscular Volume 90.8 fL (78.0-98.0); Mean Platelet Volume 8.4 fL (7.4-10.4); Platelet Count 250 thou/uL (130-400); RBC Distribution Width 13.1 % (11.5-14.5); Red Blood Cell (RBC) Count 4.24 mill/uL (4.70-6.10); White Blood Cell (WBC) Count 10.3 thou/uL (4.8-10.8)
[2019-07-22 05:05] LABS: Anion Gap 12 mmol/L (10-20); BUN (Urea Nitrogen) 23 mg/dL (8.4-25.7); Calc. Creatinine Clearance 94 mL/min (70-130); Calcium 8.7 mg/dL (7.8-10.44); Carbon Dioxide 20 mmol/L (23-31); Chloride 105 mmol/L (98-107); Estimated GFR-MDRD 66; Glucose 93 mg/dL (80-115); Potassium 3.6 mmol/L (3.5-5.1); Sodium 133 mmol/L (136-145)
[2019-07-22] MEDS: Mometasone/Formoterol 120 PUFF INHALER INH SCH (07:33)
[2019-07-22] MEDS: Aspirin Chewable 81 MG TAB PO SCH (08:06)
[2019-07-22] MEDS: Atorvastatin Calcium 40 MG TAB PO SCH (08:06)
[2019-07-22] MEDS: Enoxaparin Sodium 40 MG/0.4 ML SYRINGE SC SCH (08:06)
[2019-07-22] MEDS: Carvedilol 3.125 MG TAB PO SCH (08:06)
[2019-07-22] MEDS: Lisinopril 2.5 MG TAB PO SCH (08:06)
[2019-07-22] MEDS: Desvenlafaxine Succinate [Pristiq] 50 MG PO SCH (08:08)
--- NOTE | 2019-07-22 10:08 | PDOC.HOSPP ---
- Subjective Encounter Date: 07/22/19 Encounter Time: 07:20 Subjective: Patient seen and examined. No new complaints. No overnight events - Objective Vital Signs & Weight: Vital Signs (12 hours) Temp Pulse Resp BP Pulse Ox 07/22/19 08:06 81 07/22/19 08:05 97.6 F 81 16 130/80 98 07/22/19 07:33 78 12 07/22/19 04:00 97.6 F 78 14 111/68 99 Weight Admit Weight 220 lb Weight 219 lb 8 oz I&O: 07/21/19 07/22/19 07/23/19 06:59 06:59 06:59 Intake Total 100 720 Output Total 200 650 Balance -100 70 Result Diagrams: 07/22/19 03:53 07/22/19 03:53 EKG Reviewed by me: Yes Hospitalist ROS - Review of Systems ENT: denies: ear pain, ear discharge, nose pain, nose discharge, nose congestion , mouth pain, mouth swelling, throat pain, throat swelling, other Respiratory: denies: cough, dry, shortness of breath, hemoptysis, SOB with excertion, pleuritic pain, sputum, wheezing, other Cardiovascular: denies: chest pain, palpitations, orthopnea, paroxysmal noc. dyspnea, edema, light headedness, other Gastrointestinal: denies: nausea, vomiting, abdominal pain, diarrhea, constipation, melena, hematochezia, other Genitourinary: denies: dysuria, frequency, incontinence, hematuria, retention, other Musculoskeletal: denies: neck pain, shoulder pain, arm pain, back pain, hand pain, leg pain, foot pain, other - Medication Medications: Active Medications Generic Name Dose Route Start Last Admin Trade Name Freq PRN Reason Stop Dose Admin Alprazolam 0.25 mg 07/21/19 01:24 07/22/19 02:15 Xanax PO 0.25 mg BIDPRN PRN Administration Anxiety Aspirin 81 mg 07/21/19 09:00 07/22/19 08:06 Aspirin Chewable PO 81 mg DAILY [facility]ATA Administration Atorvastatin Calcium 40 mg 07/21/19 09:00 07/22/19 08:06 Lipitor PO 40 mg DAILY AGATA Administration Carvedilol 3.125 mg 07/21/19 09:00 07/22/19 08:06 Coreg PO 3.125 mg BID AGATA Administration Clopidogrel Bisulfate 75 mg 07/21/19 21:00 07/21/19 21:12 Plavix PO 75 mg HS AGATA Administration Enoxaparin Sodium 40 mg 07/21/19 09:00 07/22/19 08:06 Lovenox SC 40 mg 0900 AGATA Administration Isosorbide Mononitrate 60 mg 07/21/19 09:00 07/22/19 08:06 Imdur PO 60 mg DAILY AGATA Administration Lisinopril 2.5 mg 07/21/19 09:00 07/22/19 08:06 Zestril PO 2.5 mg BID AGATA Administration Melatonin 1.5 mg 07/21/19 21:00 07/21/19 22:56 Melatonin PO 1.5 mg HS AGATA Administration Mometasone Furoate/Formoterol Fumar 2 puff 07/21/19 06:30 07/22/19 07:33 Dulera 200 Mcg/5 Mcg Inhaler INH 2 puff BID-RT AGATA Administration Pantoprazole Sodium 40 mg 07/21/19 21:00 07/21/19 21:12 Protonix PO 40 mg HS AGATA Administration Desvenlafaxine 0 each 07/21/19 09:00 07/22/19 08:08 Succinate [Pristiq] PO 1 each 50 Mg DAILY AGATA Administration Senna 1 tab 07/21/19 01:23 07/21/19 21:15 Senokot PO 1 tab DAILYPRN PRN Administration Constipation Sodium Chloride 10 ml 07/21/19 09:00 07/22/19 08:07 Flush - Normal Saline IVF 10 ml Q12HR AGATA Administration Tamsulosin HCl 0.4 mg 07/21/19 21:00 07/21/19 21:12 Flomax PO 0.4 mg HS AGATA Administration - Exam General Appearance: NAD, awake alert Eye: PERRL, anicteric sclera ENT: normocephalic atraumatic, no oropharyngeal lesions Neck: supple, symmetric, no JVD, no thyromegaly Heart: RRR, no murmur, no gallops, no rubs, normal peripheral pulses Respiratory: CTAB, no wheezes, no rales, no ronchi Gastrointestinal: soft, non-tender, non-distended, normal bowel sounds Extremities: no cyanosis, no clubbing, no edema Skin: normal turgor, no lesions Neurological: cranial nerve grossly intact, normal sensation to touch Musculoskeletal: normal tone, normal strength, no muscle wasting Psychiatric: normal affect, normal behavior, A&O x 3 Hosp A/P (1) Chest pain Code(s): R07.9 - CHEST PAIN, UNSPECIFIED Status: Acute (2) CAD (coronary artery disease) Code(s): I25.10 - ATHSCL HEART DISEASE OF [place] CORONARY ARTERY W/O ANG PCTRS Status: Chronic (3) Dyslipidemia Code(s): E78.5 - HYPERLIPIDEMIA, UNSPECIFIED Status: Chronic (4) Hypertension Code(s): I10 - ESSENTIAL (PRIMARY) HYPERTENSION Status: Chronic - Plan old records reviewed/req 07/22/19- await medical record from [facility], as he had cardiac cath in last few months, if no plan for cardiac cath, will DC later today, medication reviewed as above, symptomatic treatment.
--- NOTE | 2019-07-22 12:57 | PDOC.CPN ---
- Subjective Date: 07/22/19 Time: 13:01 Interval history: The pt seen and examined. No overnight events. No cardiac complaints. - Objective Allergies/Adverse Reactions: Allergies Allergy/AdvReac Type Severity Reaction Status Date / Time zolpidem tartrate Allergy Intermediate Verified 04/08/19 05:25 [From Ambien] codeine Allergy Verified 04/08/19 05:25 meperidine HCl [From Demerol] Allergy Verified 04/08/19 05:25 Penicillins Allergy Verified 04/08/19 05:25 Visit Medications: Current Medications Acetaminophen (Tylenol) 650 mg PO Q6H PRN PRN Reason: Mild Pain (1-3) Alprazolam (Xanax) 0.25 mg PO BIDPRN PRN PRN Reason: Anxiety Last Admin: 07/22/19 02:15 Dose: 0.25 mg Artificial Tears (Tears Naturale) 2 drop EA EYE PRN PRN PRN Reason: Dry Eyes Aspirin (Aspirin Chewable) 81 mg PO DAILY [facility] Last Admin: 07/22/19 08:06 Dose: 81 mg Atorvastatin Calcium (Lipitor) 40 mg PO DAILY [facility] Last Admin: 07/22/19 08:06 Dose: 40 mg Bisacodyl (Dulcolax) 10 mg NM DAILYPRN PRN PRN Reason: Constipation Calcium Carbonate (Tums) 1,000 mg PO Q4H PRN PRN Reason: Heartburn or Indigestion Carvedilol (Coreg) 3.125 mg PO BID [facility] Last Admin: 07/22/19 08:06 Dose: 3.125 mg Clopidogrel Bisulfate (Plavix) 75 mg PO HS [facility] Last Admin: 07/21/19 21:12 Dose: 75 mg Diazepam (Valium) 5 mg PO HS PRN PRN Reason: Anxiety Enoxaparin Sodium (Lovenox) 40 mg SC 0900 [facility] Last Admin: 07/22/19 08:06 Dose: 40 mg Famotidine (Pepcid) 20 mg PO DAILY PRN PRN Reason: Heartburn or Indigestion Furosemide (Lasix) 20 mg PO HS PRN PRN Reason: fluid Guaifenesin (Robitussin Sf) 200 mg PO Q4H PRN PRN Reason: Cough Hydralazine HCl (Apresoline) 10 mg SLOW IVP Q4H PRN PRN Reason: SBP > 180 and HR < 70 Isosorbide Mononitrate (Imdur) 60 mg PO DAILY [facility] Last Admin: 07/22/19 08:06 Dose: 60 mg Lisinopril (Zestril) 2.5 mg PO BID [facility] Last Admin: 07/22/19 08:06 Dose: 2.5 mg Loperamide HCl (Imodium) 2 mg PO PRN PRN PRN Reason: Diarrhea/Loose Stools Loratadine (Claritin) 10 mg PO DAILYPRN PRN PRN Reason: Sinus Symptoms Magnesium Citrate (Citrate Of Magnesia 300 Ml Bot) 300 ml PO DAILYPRN PRN PRN Reason: Constipation Melatonin (Melatonin) 1.[address] [facility] Last Admin: 07/21/19 22:56 Dose: 1.5 mg Mometasone Furoate/Formoterol Fumar (Dulera 200 Mcg/5 Mcg Inhaler) 2 puff INH BID-RT [facility] Last Admin: 07/22/19 07:33 Dose: 2 puff Nitroglycerin (Nitrostat) 0.4 mg SL Q5MIN PRN PRN Reason: Chest Pain Ondansetron HCl (Zofran Odt) 4 mg PO Q6H PRN PRN Reason: Nausea/Vomiting Ondansetron HCl (Zofran) 4 mg IVP Q6H PRN PRN Reason: Nausea/Vomiting Pantoprazole Sodium (Protonix) [address] [facility] Last Admin: 07/21/19 21:12 Dose: 40 mg Desvenlafaxine Succinate [Pristiq] 50 Mg 0 each PO DAILY [facility] Last Admin: 07/22/19 08:08 Dose: 1 each Senna (Senokot) 1 tab PO DAILYPRN PRN PRN Reason: Constipation Last Admin: 07/21/19 21:15 Dose: 1 tab Senna/Docusate Sodium (Senokot S) 2 tab PO BID PRN PRN Reason: Constipation Sodium Chloride ([place] Nasal [place] 0.65%) 0 ml EA NARE QIDPRN PRN PRN Reason: Nasal Congestion Sodium Chloride (Flush - Normal Saline) 10 ml IVF Q12HR [facility] Last Admin: 07/22/19 08:07 Dose: 10 ml Sodium Chloride (Flush - Normal Saline) 10 ml IVF PRN PRN PRN Reason: Saline Flush Tamsulosin HCl (Flomax) 0.4 mg PO HS [facility] Last Admin: 07/21/19 21:12 Dose: 0.4 mg Throat Lozenges (Cepastat Lozenges) 1 sid PO Q2H PRN PRN Reason: Sore Throat Vital Signs & Weight: Vital Signs Temp Pulse Resp BP Pulse Ox 07/22/19 12:19 98.3 F 91 18 119/61 98 07/22/19 08:06 81 07/22/19 08:05 97.6 F 81 16 130/80 98 07/22/19 07:33 78 12 07/22/19 04:00 97.6 F 78 14 111/68 99 Admit Weight 220 lb Weight 219 lb 8 oz - Physical Exam General: alert & oriented x3 HEENT: mucus membranes moist Neck: supple neck Cardiac: regular rate and rhythm, S1/S2 Lungs: decreased breath sounds Abdomen: unremarkable Skin: clear Musculoskeletal: decreased range of motion - Labs Result Diagrams: 07/22/19 03:53 07/22/19 03:53 Troponin/CKMB Troponin I Less than 0.010 ng/mL (< 0.028) 07/21/19 04:45 - Telemetry Sinus rhythms and dysrhythmias: sinus rhythm - Assessment/Plan Assessment/Plan: 1. Chest pain - stable; will resume Ranexa 500mg BID; 2. CAD with hx of CABG and stent - S/p LHC in 05/[address] Aguillon with cont. medical tx with Ranexa; on Coreg, lisinopril, statin, ASA and Plavix 3. HTN - stable 4. HLD - on statin 5. CKD - unchanged 6. COPD - stable 7. DM type 2 - 8. Anxiety MAR reviewed * S/p LHC in 05/[address] Aguillon with cont. medical tx with Ranexa * From Cardiac standpoint, the pt is stable to d/c home. He can f/u with ardiologist at [facility] within 2-4wks. Pt. seen and eval. by me. I agree with the A\P by the DATA MANAGER. I reviewed the records from [facility]. He had a cath 1 month ago and was told that medical treatment was indicated. He has diffuse disease and ranexa was prescribed. I do not believe that he picked up the Rx. Chest clear. RRR. He can be d/c'd and f/u in the office in 2-4 weeks. [email or web address]
[2019-07-22 16:58] VITALS: BP 135/78; TEMP 97.8
--- NOTE | 2019-07-23 07:16 | DIS ---
DATE OF ADMISSION: 07/21/2019 DATE OF DISCHARGE: 07/22/2019 PRIMARY CARE PHYSICIAN: Dr. Birgit Argueta. DISCHARGE DISPOSITION: Home. PRIMARY DISCHARGE DIAGNOSIS: Chest pain ruled out acute coronary syndrome. SECONDARY DISCHARGE DIAGNOSES: Coronary artery disease, hypertension, dyslipidemia, obesity, benign enlargement of prostate, gastroesophageal reflux disease, asthma, and anxiety and depression. PRIMARY PROCEDURE/OPERATION: None. RADIOLOGICAL INVESTIGATION: Chest x-ray normal. SIGNIFICANT LABORATORY DATA: WBC 10.3, hemoglobin 12.9, and platelet 250. Sodium 133, potassium 3.6, and creatinine 1.13. LFT normal. Cardiac enzyme negative x3. DISCHARGE MEDICATIONS: The patient is instructed to continue all his previous medication. 1. Aspirin 81 mg p.o. daily. 2. Lipitor 40 mg daily. 3. Coreg 3.125 mg b.i.d. 4. Plavix 75 mg daily. 5. Pristiq 50 mg daily. 6. Diazepam 5 mg at bedtime p.r.n. 7. Advair Diskus 1 inhalation b.i.d. 8. Lasix 20 mg at bedtime p.r.n. 9. Imdur 60 mg daily. 10. Lisinopril 2.5 mg b.i.d. 11. Magnesium citrate as needed. 12. Melatonin 1 tablet at bedtime. 13. Protonix 40 mg at bedtime. 14. Ranitidine 75 mg daily p.r.n. 15. Senna 1 tablet daily p.r.n. 16. Flomax 0.4 mg p.o. at bedtime. CONTRAINDICATION: None. CODE STATUS: Full code. INPATIENT CLAIMS SUPPORT SPECIALIST: Dr. Lopez was consulted while in hospital. TEST RESULT PENDING ON DISCHARGE: None. ALLERGY: Ambien, codeine, Demerol, and penicillin. DISCHARGE PLAN: Posthospital, the patient will follow up with primary care physician in 1 week. HOSPITAL COURSE: A 64-year-old male who was admitted by me. Please see my HPI for further details. The patient was presented with complaint of chest pain. He was having recurrent chest pain as well as dyspnea on exertion. His EKG was negative and his troponin were negative. His history was concerning for atypical angina. He had recently stress test and echocardiography and that is why we did not pursue more investigation, but we consulted Cardiology. Cardiology recommended to get medical record from [facility], where the patient had recently cardiac catheterization, which showed significant coronary artery disease, but medical therapy was advised. At this point, the patient is completely chest pain free. He is on optimum medical therapy. He is instructed to follow up with primary care physician. We are adding Ranexa as per Cardiology recommendation. Rest of medication will be continued as per previous. Healthy lifestyle measure discussed with the patient. The patient is medically stable for discharge. The patient is seen and examined at bedside today please see my progress note from today for further detail. Job ID: [id number]
== END 2019-07-22 17:58 | disposition home or self-care (01) ==
LOC: ERS 21:47 → 2NO 07-21 00:37
PROVIDERS: ADMIT Hospitalist; ATTEND Hospitalist
DX: I25.119 Atherosclerotic heart disease of native coronary artery with unspecified angina pectoris (principal); E78.5 Hyperlipidemia, unspecified; I25.2 Old myocardial infarction; K21.9 Gastro-esophageal reflux disease without esophagitis; I12.9 Hypertensive chronic kidney disease with stage 1 through stage 4 chronic kidney disease, or unspecified chronic kidney disease; E11.22 Type 2 diabetes mellitus with diabetic chronic kidney disease; N18.3 Chronic kidney disease, stage 3 (moderate); J44.9 Chronic obstructive pulmonary disease, unspecified; N40.0 Benign prostatic hyperplasia without lower urinary tract symptoms; F41.9 Anxiety disorder, unspecified; F32.9 Major depressive disorder, single episode, unspecified; F12.10 Cannabis abuse, uncomplicated; E66.9 Obesity, unspecified; Z68.29 Body mass index [BMI] 29.0-29.9, adult; Z79.02 Long term (current) use of antithrombotics/antiplatelets; Z79.82 Long term (current) use of aspirin; Z79.899 Other long term (current) drug therapy; Z88.0 Allergy status to penicillin; Z88.5 Allergy status to narcotic agent; Z88.8 Allergy status to other drugs, medicaments and biological substances; Z90.49 Acquired absence of other specified parts of digestive tract; Z95.1 Presence of aortocoronary bypass graft; Z95.5 Presence of coronary angioplasty implant and graft
CPT/HCPCS: 36415; 71045; 80048; 80053; 82550; 84484; 85025; 93005; 94664; 96372; G0378; J1650

== ENCOUNTER 2019-07-26 10:18 | Emergency (ER) | payer OTHER ==
[2019-07-26 10:52] LABS: #Eosinphils 0.2 thou/uL (0.0-0.7); #Lymphocytes 1.1 thou/uL (1.20-3.40); #Monocytes 0.5 thou/uL (0.11-0.59); #Neutrophils 7.7 thou/uL (1.40-6.50); %Basophils 0.4 % (0.0-1.0); %Eosinophils 1.9 % (0.0-10.0); %Lymphocytes 11.4 % (21.0-51.0); %Monocytes 5.4 % (0.0-10.0); Hemoglobin 13.8 g/dL (14.0-18.0); Mean Corpuscular HGB CONC 32.9 g/dL (32.0-36.0); Mean Corpuscular Hemoglobin 29.4 pg (27.0-31.0); Mean Corpuscular Volume 89.2 fL (78.0-98.0); Mean Platelet Volume 7.9 fL (7.4-10.4); Platelet Count 272 thou/uL (130-400); RBC Distribution Width 12.9 % (11.5-14.5); White Blood Cell (WBC) Count 9.5 thou/uL (4.8-10.8)
--- NOTE | 2019-07-26 11:08 | RAD ---
Exam: Chest one view HISTORY:Short of breath, chest pain Comparison: 07/20/2019 FINDINGS: Lungs: Hazy opacity of the partially aerated right lung Cardiac silhouette:Enlarged cardiomediastinal silhouette Pulmonary vessels: Prominent pulmonary vasculature, accentuated by technique and rotation. Superimpos ed granulomatous calcification present Pleural Spaces: Moderate to large right pleural effusion Pneumothorax: None Osseous abnormalities: Extensive spinal hardware. IMPRESSION: Moderate to large right effusion with adjacent right pulmonary parenchymal opacity. Prominent cardiac silhouette and pulmonary vasculature. Recommend continued imaging follow-up.
[2019-07-26 11:17] LABS: ALT (SGPT) 39 U/L (8-55); AST (SGOT) 25 U/L (5-34); Albumin 3.9 g/dL (3.4-4.8); Alkaline Phosphatase 200 U/L (40-110); Anion Gap 14 mmol/L (10-20); BUN (Urea Nitrogen) 15 mg/dL (8.4-25.7); Bilirubin, Total 0.5 mg/dL (0.2-1.2); CK (CPK) 23 U/L (30-200); Calc. Creatinine Clearance 0 mL/min (70-130); Carbon Dioxide 19 mmol/L (23-31); Chloride 108 mmol/L (98-107); Estimated GFR-MDRD 71; Globulin 2.6 g/dL (2.4-3.5); Glucose 141 mg/dL (80-115); Lipase 16 U/L (8-78); Protein, Total 6.5 g/dL (5.8-8.1); Sodium 137 mmol/L (136-145)
[2019-07-26 11:34] LABS: CKMB 1.2 ng/mL (0-6.6)
--- NOTE | 2019-07-26 12:39 | RAD ---
CHEST 1 VIEW: Date: 07/26/19 INDICATION: History of chest pain. COMPARISON: Prior study dated 07/20/19. FINDINGS: There is stable post CABG change and cardiomegaly. There is some blunting of the right costophrenic a ngle which is new, suspicious for tiny right pleural effusion. Left costophrenic angle is sharp. No p neumothorax is evident. IMPRESSION: Cardiomegaly with new small right pleural effusion. POS: OFF
[2019-07-26 13:35] LABS: Troponin I 0.017 ng/mL (< 0.028)
[2019-07-27] MEDS ORDERED: Nitroglycerin 0.4 MG TAB (25 Tab Bottle) PO PRN (02:22)
[2019-07-27] MEDS ORDERED: Furosemide 20 MG TAB PO PRN (02:23)
[2019-07-27] MEDS ORDERED: Mometasone/Formoterol 120 PUFF INHALER INH SCH (06:30)
[2019-07-27] MEDS ORDERED: Venlafaxine HCl XR 75 MG CAP PO SCH (09:00)
[2019-07-27] MEDS ORDERED: Lisinopril 5 MG TAB PO SCH (09:00)
[2019-07-27] MEDS ORDERED: Atorvastatin Calcium 40 MG TAB PO SCH (09:00)
[2019-07-27] MEDS ORDERED: Carvedilol 3.125 MG TAB PO SCH (09:00)
[2019-07-27] MEDS ORDERED: Isosorbide Mononitrate (ER) 30 MG TAB PO SCH (09:00)
[2019-07-27] MEDS ORDERED: Aspirin Chewable 81 MG TAB PO SCH (09:00)
[2019-07-27] MEDS ORDERED: Clopidogrel Bisulfate 75 MG TAB PO SCH (21:00)
[2019-07-27] MEDS ORDERED: Melatonin 3 MG TAB PO SCH (21:00)
[2019-07-27] MEDS ORDERED: Tamsulosin HCl 0.4 MG CAP PO SCH (21:00)
--- NOTE | 2019-07-31 13:41 | EKG ---
Test Reason : Blood Pressure : / mmHG Vent. Rate : 092 BPM Atrial Rate : 092 BPM P-R Int : 128 ms QRS Dur : 084 ms QT Int : 376 ms P-R-T Axes : 047 033 045 degrees QTc Int : 464 ms Normal sinus rhythm Possible Inferior infarct , age undetermined Abnormal ECG Confirmed by ANY PANTOJA ([id number]), department editor SEB HANCOCK ([id number]) on 07/31/2019 1:41:11 PM Referred By: Confirmed By:ANY PANTOJA
== END 2019-07-26 14:15 | disposition home or self-care (01) ==
LOC: ERS 10:18
DX: R06.00 Dyspnea, unspecified (principal); E78.5 Hyperlipidemia, unspecified; E78.00 Pure hypercholesterolemia, unspecified; I25.2 Old myocardial infarction; I10 Essential (primary) hypertension; Z79.899 Other long term (current) drug therapy
CPT/HCPCS: 36415; 71045; 80053; 82550; 82553; 83690; 83880; 84484; 85025; 93005; 94760

== ENCOUNTER 2019-07-26 22:17 | Observation (INO) | payer OTHER ==
[~2019-07-26 22:17] MED LIST: ISOVUE-370 76%-LOCM 1 ML ONE
[2019-07-26 22:51] LABS: #Eosinphils 0.2 thou/uL (0.0-0.7); #Lymphocytes 1.4 thou/uL (1.20-3.40); #Monocytes 0.8 thou/uL (0.11-0.59); #Neutrophils 8.4 thou/uL (1.40-6.50); %Basophils 0.3 % (0.0-1.0); %Eosinophils 1.4 % (0.0-10.0); %Lymphocytes 13.2 % (21.0-51.0); %Monocytes 7.7 % (0.0-10.0); %Neutrophils 77.4 % (42.0-75.0); Hemoglobin 13.6 g/dL (14.0-18.0); Mean Corpuscular HGB CONC 33.4 g/dL (32.0-36.0); Mean Corpuscular Hemoglobin 30.1 pg (27.0-31.0); Mean Corpuscular Volume 90.4 fL (78.0-98.0); Mean Platelet Volume 7.9 fL (7.4-10.4); Platelet Count 291 thou/uL (130-400); RBC Distribution Width 12.8 % (11.5-14.5); Red Blood Cell (RBC) Count 4.51 mill/uL (4.70-6.10); White Blood Cell (WBC) Count 10.8 thou/uL (4.8-10.8)
[2019-07-26 23:06] LABS: ALT (SGPT) 34 U/L (8-55); AST (SGOT) 21 U/L (5-34); Albumin 3.6 g/dL (3.4-4.8); Alkaline Phosphatase 189 U/L (40-110); Anion Gap 12 mmol/L (10-20); BUN (Urea Nitrogen) 15 mg/dL (8.4-25.7); Bilirubin, Total 0.4 mg/dL (0.2-1.2); Calc. Creatinine Clearance 0 mL/min (70-130); Calcium 8.9 mg/dL (7.8-10.44); Carbon Dioxide 19 mmol/L (23-31); Chloride 109 mmol/L (98-107); Estimated GFR-MDRD 69; Globulin 2.9 g/dL (2.4-3.5); Glucose 154 mg/dL (80-115); Potassium 3.3 mmol/L (3.5-5.1); Protein, Total 6.5 g/dL (5.8-8.1); Sodium 137 mmol/L (136-145)
--- NOTE | 2019-07-26 23:09 | RAD ---
RADIOGRAPH CHEST 1 VIEW: DATE: 07/26/2019 HISTORY: 64-year-old male with chest pain FINDINGS: There are no airspace densities, pulmonary edema, pneumothorax, or cardiomegaly. Minimal blunting of right lateral costophrenic angle is unchanged since 04/26/2019. Minimal pulmonary scar at right lung base. Sternotomy wires. Either calcification or stent in coronary artery visualized over left heart b order. No interval change overall since 04/26/2019. IMPRESSION: 1. No acute cardiopulmonary findings. 2. Evidence for coronary atherosclerotic disease.
[2019-07-26] MEDS ORDERED: Nitroglycerin 2% Ointment 1 INCH/1 GM Packet ONE (23:14)
[2019-07-26] MEDS ORDERED: Ondansetron PF 4 MG/2 ML Vial ONE (23:14)
[2019-07-26 23:28] LABS: CKMB 1.4 ng/mL (0-6.6)
--- NOTE | 2019-07-27 00:03 | CT ---
CT angiogram thorax with contrast CT angiogram abdomen with contrast: HISTORY: 64-year-old male with chest pain, dyspnea, nausea, epigastric abdominal pain. TECHNIQUE: IV injection of iodinated contrast. Arterial bolus chasing technique. Scan acquisition from top of aortic arch to iliac crests. 3-D MIP reconstructions. FINDINGS: There is mostly noncalcified atherosclerosis involving the entire thoracic and abdominal aorta, with no evidence of dissection, rupture, or aneurysm. Short segment focus of moderate stenosis at proximal aspect of right main renal artery. Similar finding due to atherosclerosis at proximal aspect of left main renal artery. Atherosclerosis of bilateral common iliac arteries without high-grade stenosis. Atherosclerosis causing severe stenosis at origin of left internal iliac artery. Short segm ent severe stenosis at proximal aspect of celiac artery. No high-grade stenosis at proximal aspect of the superior mesenteric artery. There is atherosclerotic plaque causing mild stenosis of the SMA a distance of approximately 2 to 2.5 cm distal to its origin. Bovine origin of left common carotid artery from innominate artery. No high-grade stenosis of innominate artery, origin of bilateral subcl celine arteries, or origins of bilateral common carotid arteries. Thoracic and lumbar vertebral body heights are maintained. Sternotomy wires. No pneumothorax or pleural effusion. No pulmonary consolida tion. No evidence of pulmonary thromboembolism. No mediastinal or hilar lymphadenopathy. No small bowel dilation. Noninflamed appendix. No evidence of colonic diverticulitis from cecum to lower desce nding colon. No hydronephrosis. No major pathology identified involving pancreas, spleen, liver, or adrenals, within the limitations of an arterial phase only scan. No pneumoperitoneum identified. No r etroperitoneal hematoma or retroperitoneal lymphadenopathy. No free fluid identified in the upper abdominal cavity. IMPRESSION: 1) no aortic dissection, aneurysm, or rupture. 2) atherosclerosis of entire aorta and many of its branches. 3) stenoses of many of the branches of the aorta, including celiac artery, left internal iliac artery , and bilateral renal arteries.
[2019-07-27] MEDS ORDERED: Aspirin Chewable 81 MG TAB ONE (00:06)
[2019-07-27 02:21] LABS: Troponin I 0.025 ng/mL (< 0.028)
--- NOTE | 2019-07-27 02:42 | HP ---
PRIMARY CARE PROVIDER: Birgit Argueta. CHIEF COMPLAINT: Chest pain. HISTORY OF PRESENT ILLNESS: Mr. Levy is a pleasant 64-year-old gentleman, who was seen at [facility] on July 27, 2019. He was hospitalized at this facility from July 21 to of this year for chest pain. He was seen by Cardiology Service. Medical therapy was advised. He was started on Ranexa. He reports that he started having chest discomfort last night. He describes it as left-sided, sharp. He denies any fevers or chills. He denies any shortness of breath. He reports that it was 6/10 at its worst. He also reports left arm tingling. He also describes dizziness with a sensation of room spinning. He reports nausea and shortness of breath. He denies any fevers or chills. He was initially seen in the emergency room yesterday and discharged home. He presented to the emergency room again because of ongoing chest discomfort. REVIEW OF SYSTEMS: All systems were reviewed and found to be negative except for the pertinent positives mentioned above. PAST MEDICAL HISTORY: Dyslipidemia, colon cancer status post surgery, myocardial infarction, gastroesophageal reflux disease, hypertension, nephrolithiasis. PAST SURGICAL HISTORY: Colon surgery, cardiac catheterization x10, coronary artery bypass graft surgery, four vessels. SOCIAL HISTORY: The patient reports marijuana use. He denies tobacco use or alcohol use. FAMILY HISTORY: Significant for heart disease. ALLERGIES: CODEINE, MEPERIDINE, AMBIEN, AND PENICILLIN. HOME MEDICATIONS: As dictated by Dr. Mishra in his discharge summary dated July 22, 2019, including Ranexa. PHYSICAL EXAMINATION: GENERAL: On examination, Mr. Levy is awake and alert, not in acute distress. VITAL SIGNS: Blood pressure is 118/81, pulse 88, respiratory rate 18, and oxygen saturation 99% on room air. He is afebrile. EYES: No scleral icterus. No conjunctival pallor. ENT: Moist mucosal membranes. No oropharyngeal erythema or exudates. NECK: Supple, nontender. Trachea is midline. RESPIRATORY: Accessory muscles of breathing are not active. Chest wall movements are symmetric bilaterally. LUNGS: Clear to auscultation without wheeze, rhonchi, or crepitations. CARDIOVASCULAR: S1 and S2 are heard, regular. Peripheral pulses palpable. No carotid bruit. No pericardial rub. ABDOMEN: Soft, nontender. Bowel sounds are heard. NEUROLOGIC: Cranial nerves 2 through 12 intact, deep tendon reflexes 2+. MUSCULOSKELETAL: The patient is able to move all 4 extremities. SKIN: He has left lower extremity swelling. He also has seborrheic keratosis. He also has macular lesions on his back and hyperpigmented spots on his chest. LYMPHATIC: No cervical lymphadenopathy. PSYCHIATRIC: Normal mood, normal affect. The patient is oriented to person and place, not to time. LABORATORY DATA: Mr. Levy's labs and investigations were reviewed. I reviewed his electrocardiogram, which shows sinus tachycardia, no ST changes to suggest an acute coronary syndrome. I also reviewed his chest x-ray, which does not show any pulmonary infiltrate. He also had CT dissection protocol, which did not show any aortic dissection, aneurysm or rupture. He has stenosis of many of the branches of the aorta including celiac artery, left internal iliac artery and bilateral renal arteries. He has normocytic anemia with hemoglobin 13.8, normal white count, normal platelet count, troponin-I initially indeterminate at 0.033, subsequently trending into the normal range at 0.017. Alkaline phosphatase is elevated at 200. It was 187 on July 20, 2019. Comprehensive metabolic profile is otherwise unremarkable. ASSESSMENT AND PLAN: Mr. Levy is a pleasant 64-year-old gentleman, who was seen at [facility] on July 27, 2019. His problem list includes: 1. Chest pain: Most likely secondary to cardiac etiology, given the fact that he is known to have coronary artery disease on medical management. He will be admitted to the hospital for further management. Cardiology Service will be consulted for optimization of his antianginal medications. 2. Hypertension: We will resume his home medications, monitor vital signs and titrate antihypertensives as needed. 3. Left lower extremity swelling: We will check venous Dopplers to rule out deep venous thrombosis. 4. Dyslipidemia: We will continue statin. 5. Nephrolithiasis: Does not appear to be an acute issue. 6. Marijuana use: The patient has been counseled regarding marijuana cessation. Many thanks for allowing me to participate in your patient's care. Please feel free to contact me with any questions or concerns. LEVEL OF RISK: High. LEVEL OF COMPLEXITY: High. Job ID: [id number]
[2019-07-27 03:24] VITALS: BMI 29.5
[2019-07-27] MEDS ORDERED: Furosemide 20 MG TAB PO PRN (07:46)
[2019-07-27] MEDS ORDERED: Diazepam 5 MG TAB PO PRN (07:46)
[2019-07-27] MEDS ORDERED: Magnesium Citrate 300 ML BOT PO SCH (08:00)
[2019-07-27 08:09] LABS: Troponin I 0.018 ng/mL (< 0.028)
[2019-07-27] MEDS: Aspirin Chewable 81 MG TAB PO SCH (08:39)
[2019-07-27] MEDS: Atorvastatin Calcium 40 MG TAB PO SCH (08:39)
[2019-07-27] MEDS: Carvedilol 3.125 MG TAB PO SCH ×2 (08:39→20:05)
[2019-07-27] MEDS: Lisinopril 2.5 MG TAB PO SCH ×2 (08:39→20:05)
[2019-07-27] MEDS ORDERED: DESVENLAFAXINE SUCCINATE PO SCH (09:00)
[2019-07-27] MEDS ORDERED: Isosorbide Mononitrate (ER) 30 MG TAB PO SCH (09:00)
[2019-07-27] MEDS ORDERED: Lisinopril 10 MG TAB PO SCH (09:00)
[2019-07-27] MEDS ORDERED: Carvedilol 6.25 MG TAB PO SCH (09:00)
[2019-07-27] MEDS ORDERED: Non-Formulary Item 1 EACH (Fluticasone/Salmeterol [Advair Diskus 250/50] 1 PUFF) INH SCH (09:00)
--- NOTE | 2019-07-27 09:35 | ULT ---
EXAM: Left lower extremity venous Doppler HISTORY: Patient admitted with chest pain and shortness of breath. FINDINGS: Grayscale, color-flow, Doppler evaluation, spectral analysis of the left lower extremity venous struc tures is performed with 2-D imaging. The left common femoral, superficial femoral, popliteal, posterior tibial, proximal greater saphenous and profunda femoral veins are imaged. There is normal luminal compressibility, flow, and augmentation in the visualized deep venous structu res of the left lower extremity. IMPRESSION: No evidence of a deep vein thrombosis in the visualized deep venous structures left lower extremity.
[2019-07-27] MEDS: Venlafaxine HCl XR 75 MG CAP PO SCH (10:35)
--- NOTE | 2019-07-27 13:47 | PDOC.CPN ---
- Subjective Date: 07/27/19 Time: 13:47 Interval history: The pt seen and examined. No overnight events. No cardiac complaints. - Objective Allergies/Adverse Reactions: Allergies Allergy/AdvReac Type Severity Reaction Status Date / Time zolpidem tartrate Allergy Intermediate Verified 04/08/19 05:25 [From Ambien] meperidine HCl [From Demerol] Allergy Verified 04/08/19 05:25 Penicillins Allergy Verified 04/08/19 05:25 Visit Medications: Current Medications Aspirin (Aspirin Chewable) 81 mg PO DAILY [facility] Last Admin: 07/27/19 08:39 Dose: 81 mg Atorvastatin Calcium (Lipitor) 40 mg PO DAILY [facility] Last Admin: 07/27/19 08:39 Dose: 40 mg Carvedilol (Coreg) 3.125 mg PO BID [facility] Last Admin: 07/27/19 08:39 Dose: 3.125 mg Clopidogrel Bisulfate (Plavix) 75 mg PO HS [facility] Diazepam (Valium) 5 mg PO HS PRN PRN Reason: Anxiety Furosemide (Lasix) 20 mg PO HS PRN PRN Reason: fluid Isosorbide Mononitrate (Imdur) 60 mg PO DAILY [facility] Last Admin: 07/27/19 08:39 Dose: 60 mg Lisinopril (Zestril) 2.5 mg PO BID [facility] Last Admin: 07/27/19 08:39 Dose: 2.5 mg Magnesium Citrate (Citrate Of Magnesia 300 Ml Bot) 296 ml PO ASDIR [facility] Mometasone Furoate/Formoterol Fumar (Dulera 200 Mcg/5 Mcg Inhaler) 2 puff INH BID-RT [facility] Pantoprazole Sodium (Protonix) 40 mg PO HS [facility] Ranolazine (Ranexa) 500 mg PO BID [facility] Last Admin: 07/27/19 08:39 Dose: 500 mg Tamsulosin HCl (Flomax) 0.4 mg PO HS [facility] Venlafaxine HCl (Effexor Xr) 75 mg PO DAILY [facility] Last Admin: 07/27/19 10:35 Dose: 75 mg Vital Signs & Weight: Vital Signs Temp Pulse Resp BP Pulse Ox 07/27/19 11:46 98.1 F 87 20 166/90 H 100 07/27/19 08:39 80 07/27/19 08:00 86 22 H 144/77 H 100 07/27/19 07:24 97.5 F L 80 20 128/65 100 07/27/19 03:00 97.7 F 76 22 H 149/78 H 99 Weight 218 lb - Physical Exam General: other (very forgetful) Neck: supple neck Cardiac: regular rate and rhythm, S1/S2 Lungs: clear to auscultation Neuro: cranial nerve 2-12 intact Skin: clear Musculoskeletal: decreased range of motion - Labs Result Diagrams: 07/26/19 22:41 07/26/19 22:41 Troponin/CKMB CK-MB (CK-2) 1.4 ng/mL (0-6.6) 07/26/19 22:41 Troponin I 0.018 ng/mL (< 0.028) 07/27/19 07:20 - Telemetry Sinus rhythms and dysrhythmias: sinus rhythm - Assessment/Plan Assessment/Plan: 1. CP - the pt had sharp heavy stubbing like chest paint to his Lt chest; He has no symptoms at this moment. 2. CAD with hx of CABG in 2013 with TOBIN-LAD, SVG-Diag, SVG-OM and 50% stenosis in RCA; and stent - s/p LHC in 05/[address] Aguillon with cont. medical tx with Ranexa; Pt's support program application was given to the pt. 3. HTN - stable 4. HLD - on Statin 5. CKD - 6. COPD - stable with RA 7. DM type 2 - 8. Anxiety MAR reviewed * s/p LHC in 05/[address] Aguillon with 30% stenosis in Lt main; 100% in LAD, Lt Cx, and RCA; patent in SVG-OM and TOBIN-LAD; inable to identify in SVG-diag; cont. medical tx with Ranexa * The pt may d/c home once Dr Lopez reviews his LHC result. Pt. was seen and eval. by me. I agree with the A/P by the [employer]. We have discussed the pt. and the plan. I reviewed his cath report from a month ago and all 3 [place] vessels are 100% occluded. The SVG to the Circumflex was patent, the TOBIN to the LAD was patent. The diag-SVG was not found. There was no graft in the past to the RCA. I have explaibed to the pt. that medical management is the only option at this time. He was here last week and I suggested he start Ranexa. He did not get that filled . We will try to find a way for him to get this medication as it may help with his ischemia. We will see how responds overnight. Chest clear. RRR. No edema. md bryanna
[2019-07-27] MEDS ORDERED: Nitroglycerin 0.4 MG TAB (25 Tab Bottle) SL PRN (14:16)
--- NOTE | 2019-07-27 17:43 | PDOC.HOSPP ---
- Subjective Encounter Date: 07/27/19 Encounter Time: 17:41 Subjective: Patient lying in bed, he reports feeling better after morning medications were given, he states he was having some chest pain that resolved now. He denies any shortness of breath, but was having some leg pain which his doppler was negative for DVT. - Objective Vital Signs & Weight: Vital Signs (12 hours) Temp Pulse Resp BP Pulse Ox 07/27/19 15:25 98.3 F 81 16 147/80 H 99 07/27/19 11:46 98.1 F 87 20 166/90 H 100 07/27/19 08:39 80 07/27/19 08:00 86 22 H 144/77 H 100 07/27/19 07:24 97.5 F L 80 20 128/65 100 Weight Weight 218 lb I&O: 07/26/19 07/27/19 07/28/19 06:59 06:59 06:59 Intake Total 0 Output Total 300 Balance -300 Result Diagrams: 07/26/19 22:41 07/26/19 22:41 Radiology Reviewed by me: Yes Hospitalist ROS - Review of Systems Constitutional: denies: fever, chills Eyes: denies: pain, vision change ENT: denies: ear pain, throat pain, throat swelling Respiratory: denies: cough, dry, shortness of breath Cardiovascular: reports: chest pain. denies: palpitations Gastrointestinal: denies: nausea, vomiting Musculoskeletal: reports: leg pain. denies: neck pain, shoulder pain, back pain Skin: denies: rash, lesions Neurological: denies: weakness, numbness, change in speech All other systems reviewed; all pertinent +/- noted in HPI/Subj - Medication Medications: Active Medications Generic Name Dose Route Start Last Admin Trade Name Freq PRN Reason Stop Dose Admin Aspirin 81 mg 07/27/19 09:00 07/27/19 08:39 Aspirin Chewable PO 81 mg DAILY [facility] Administration Atorvastatin Calcium 40 mg 07/27/19 09:00 07/27/19 08:39 Lipitor PO 40 mg DAILY [facility] Administration Carvedilol 3.125 mg 07/27/19 09:00 07/27/19 08:39 Coreg PO 3.125 mg BID [facility] Administration Isosorbide Mononitrate 60 mg 07/27/19 09:00 07/27/19 08:39 Imdur PO 60 mg DAILY [facility] Administration Lisinopril 2.5 mg 07/27/19 09:00 07/27/19 08:39 Zestril PO 2.5 mg BID [facility] Administration Ranolazine 500 mg 07/27/19 09:00 07/27/19 08:39 Ranexa PO 500 mg BID [facility] Administration Venlafaxine HCl 75 mg 07/27/19 09:00 07/27/19 10:35 Effexor Xr PO 75 mg DAILY [facility] Administration - Exam Eye: PERRL ENT: normocephalic atraumatic, no oropharyngeal lesions Neck: supple, no JVD Heart: RRR, no murmur Respiratory: CTAB, no wheezes Gastrointestinal: soft, non-tender, normal bowel sounds Extremities: no cyanosis, no clubbing Skin: normal turgor Neurological: cranial nerve grossly intact, no weakness, no new deficit Musculoskeletal: normal tone, normal strength, no muscle wasting Psychiatric: normal affect, A&O x 3 Hosp A/P (1) Chest pain Code(s): R07.9 - CHEST PAIN, UNSPECIFIED Status: Acute (2) CAD (coronary artery disease) Code(s): I25.10 - ATHSCL HEART DISEASE OF [place] CORONARY ARTERY W/O ANG PCTRS Status: Chronic (3) Dyslipidemia Code(s): E78.5 - HYPERLIPIDEMIA, UNSPECIFIED Status: Chronic (4) Hypertension Code(s): I10 - ESSENTIAL (PRIMARY) HYPERTENSION Status: Chronic (5) Obesity Code(s): E66.9 - OBESITY, UNSPECIFIED Status: Chronic - Plan old records reviewed/req Continue home meds, chest pain resolved and recent negative workup Cardiology Dr Lopez is following Monitor on tele for any arrhythmia Likely discharge in the am
[2019-07-27] MEDS: Mometasone/Formoterol 120 PUFF INHALER INH SCH (19:36)
[2019-07-27] MEDS ORDERED: Melatonin 3 MG TAB PO PRN (20:26)
[2019-07-27] MEDS ORDERED: Bisacodyl 5 MG TAB PO PRN (20:26)
[2019-07-27] MEDS ORDERED: Tamsulosin HCl 0.4 MG CAP PO SCH (21:00)
[2019-07-27] MEDS ORDERED: Clopidogrel Bisulfate 75 MG TAB PO SCH (21:00)
[2019-07-28] MEDS: Mometasone/Formoterol 120 PUFF INHALER INH SCH (08:07)
[2019-07-28 08:12] VITALS: TEMP 98.8
--- NOTE | 2019-07-28 08:43 | PDOC.CPN ---
- Subjective Date: 07/28/19 Time: 08:48 Interval history: The pt seen and examined. No overnight events. No cardiac complaints. He had 1 episode of CP around 0500 this AM with no ECG changes and stable VS. His symptom resolved with 1 NTG - Objective Allergies/Adverse Reactions: Allergies Allergy/AdvReac Type Severity Reaction Status Date / Time zolpidem tartrate Allergy Intermediate Verified 04/08/19 05:25 [From Ambien] meperidine HCl [From Demerol] Allergy Verified 04/08/19 05:25 Penicillins Allergy Verified 04/08/19 05:25 Visit Medications: Current Medications Aspirin (Aspirin Chewable) 81 mg PO DAILY [facility] Last Admin: 07/27/19 08:39 Dose: 81 mg Atorvastatin Calcium (Lipitor) 40 mg PO DAILY [facility] Last Admin: 07/27/19 08:39 Dose: 40 mg Bisacodyl (Dulcolax) 10 mg PO DAILY PRN PRN Reason: CONSTIPATION Last Admin: 07/27/19 21:10 Dose: 10 mg Carvedilol (Coreg) 3.125 mg PO BID [facility] Last Admin: 07/27/19 20:05 Dose: 3.125 mg Clopidogrel Bisulfate (Plavix) 75 mg PO HS [facility] Last Admin: 07/27/19 20:05 Dose: 75 mg Diazepam (Valium) 5 mg PO HS PRN PRN Reason: Anxiety Furosemide (Lasix) 20 mg PO HS PRN PRN Reason: fluid Isosorbide Mononitrate (Imdur) 60 mg PO DAILY [facility] Last Admin: 07/27/19 08:39 Dose: 60 mg Lisinopril (Zestril) 2.5 mg PO BID [facility] Last Admin: 07/27/19 20:05 Dose: 2.5 mg Magnesium Citrate (Citrate Of Magnesia 300 Ml Bot) 296 ml PO ASDIR [facility] Melatonin (Melatonin) 3 mg PO HS PRN PRN Reason: Insomnia Last Admin: 07/27/19 21:10 Dose: 3 mg Mometasone Furoate/Formoterol Fumar (Dulera 200 Mcg/5 Mcg Inhaler) 2 puff INH BID-RT [facility] Last Admin: 07/28/19 08:07 Dose: 2 puff Nitroglycerin (Nitrostat) 0.4 mg SL Q5MIN PRN PRN Reason: Chest Pain Last Admin: 07/28/19 05:00 Dose: 0.4 mg Pantoprazole Sodium (Protonix) 40 mg PO HS [facility] Last Admin: 07/27/19 20:05 Dose: 40 mg Potassium Chloride (K-Dur) 40 meq PO NOW [facility] Stop: 07/28/19 11:00 Ranolazine (Ranexa) 500 mg PO BID [facility] Last Admin: 07/27/19 20:05 Dose: 500 mg Tamsulosin HCl (Flomax) 0.4 mg PO HS [facility] Last Admin: 07/27/19 20:05 Dose: 0.4 mg Venlafaxine HCl (Effexor Xr) 75 mg PO DAILY [facility] Last Admin: 07/27/19 10:35 Dose: 75 mg Vital Signs & Weight: Vital Signs Temp Pulse Resp BP BP Pulse Ox 07/28/19 08:07 91 16 98 07/28/19 08:00 98.8 F 86 16 124/75 97 07/28/19 04:57 76 16 136/75 99 07/28/19 04:01 98.6 F 74 16 133/77 99 Weight 217 lb 4.8 oz - Physical Exam General: alert & oriented x3 Neck: supple neck Cardiac: regular rate and rhythm, S1/S2 Lungs: clear to auscultation Neuro: cranial nerve 2-12 intact Abdomen: unremarkable Skin: clear Musculoskeletal: decreased range of motion - Labs Result Diagrams: 07/26/19 22:41 07/26/19 22:41 Troponin/CKMB CK-MB (CK-2) 1.4 ng/mL (0-6.6) 07/26/19 22:41 Troponin I 0.018 ng/mL (< 0.028) 07/27/19 07:20 - Telemetry Sinus rhythms and dysrhythmias: sinus rhythm - Assessment/Plan Assessment/Plan: 1. CP - the pt had 1 episode of CP around 0500 with no 12 lead ECG changes with stable VS. He has no symptoms at this moment. Will get medical record from [place] for Sydnee SPARKS. 2. CAD with hx of CABG in 2013 with TOBIN-LAD, SVG-Diag, SVG-OM and 50% stenosis in RCA; and stent - s/p LHC in 05/[address] Aguillon with cont. medical tx with [facility]; Pt's support program application was given to the pt. 3. HTN - stable 4. HLD - on Statin 5. CKD - unchanged 6. COPD - stable with RA 7. DM type 2 - 8. Anxiety MAR reviewed * s/p LHC in 05/[address] Aguillon with 30% stenosis in Lt main; 100% occulded in 3 [place] vessels, patent in SVG-OM and TOBIN-LAD; unable to identify in SVG-diag, there was no graft in the past to the RCA; medical management is the only option at this time; cont. medical tx with Ranexa * The pt is stable to d/c home today; The pt will f/u with Dr Lopez' office within 2 wks.
[2019-07-28] MEDS ORDERED: Potassium Chloride 20 MEQ TAB PO SCH (09:00)
[2019-07-28] MEDS: Atorvastatin Calcium 40 MG TAB PO SCH (09:26)
[2019-07-28] MEDS: Carvedilol 3.125 MG TAB PO SCH (09:26)
[2019-07-28] MEDS: Aspirin Chewable 81 MG TAB PO SCH (09:26)
[2019-07-28] MEDS: Lisinopril 2.5 MG TAB PO SCH (09:26)
[2019-07-28] MEDS: Venlafaxine HCl XR 75 MG CAP PO SCH (09:27)
[2019-07-28 09:30] VITALS: BP 124/75
--- NOTE | 2019-07-28 19:54 | EKG ---
Test Reason : C/O CHEST PAIN Blood Pressure : / mmHG Vent. Rate : 075 BPM Atrial Rate : 075 BPM P-R Int : 140 ms QRS Dur : 090 ms QT Int : 418 ms P-R-T Axes : 052 035 020 degrees QTc Int : 466 ms Normal sinus rhythm Normal ECG When compared with ECG of 26-JUL-2019 22:24, (Unconfirmed) Nonspecific T wave abnormality, improved in Inferior leads Confirmed by CECILIA WISEMAN, SEdwin ([id number]) on 07/28/2019 7:54:03 PM Referred By: RY Confirmed By:DR. Jacey BROOKS MD
--- NOTE | 2019-07-28 20:05 | EKG ---
Test Reason : Blood Pressure : / mmHG Vent. Rate : 076 BPM Atrial Rate : 076 BPM P-R Int : 124 ms QRS Dur : 090 ms QT Int : 418 ms P-R-T Axes : 006 023 046 degrees QTc Int : 470 ms Normal sinus rhythm Normal ECG When compared with ECG of 27-JUL-2019 08:44, (Unconfirmed) No significant change was found Confirmed by CECILIA WISEMAN, SEdwin ([id number]) on 07/28/2019 8:02:59 PM Referred By: KALLIE Confirmed By:DR. Jacey BROOKS MD
--- NOTE | 2019-07-29 01:30 | DIS ---
DATE OF ADMISSION: 07/27/2019 DATE OF DISCHARGE: 07/28/2019 ADMISSION DIAGNOSES: Chest pain, rule out myocardial infarction. DISCHARGE DIAGNOSIS: Chest pain, rule out myocardial infarction. HOSPITAL COURSE: The patient was admitted. Serial cardiac enzymes were obtained and ME has been ruled out. Cardiology reviewed care and recommended the patient to follow up with outpatient care in his office. CONDITION OF THE PATIENT AT THE TIME OF DISCHARGE: Stable, afebrile, ambulating, and tolerating diet well. DISCHARGE INSTRUCTIONS: Discharge the patient to outpatient care. DIET: Cardiac prudent. ACTIVITY: As tolerated. DISCHARGE MEDICATIONS: As per reconciliation sheet. FOLLOWUP CARE: Follow up with Cardiology as scheduled. Follow up PCP as scheduled. Job ID: [id number]
--- NOTE | 2019-07-31 12:39 | EKG ---
Test Reason : CP Blood Pressure : / mmHG Vent. Rate : 110 BPM Atrial Rate : 110 BPM P-R Int : 126 ms QRS Dur : 088 ms QT Int : 342 ms P-R-T Axes : 056 054 019 degrees QTc Int : 462 ms Sinus tachycardia Possible Left atrial enlargement Possible Inferior infarct , age undetermined Biphasic T wave Abnormal ECG Confirmed by LASHANDA BAUMANN M.D. ([id number]), photographic editor SEB HANCOCK ([id number]) on 07/31/2019 12:38:58 PM Referred By: PASTOR Confirmed By:LASHANDA BAUMANN M.D.
== END 2019-07-28 11:12 | disposition home or self-care (01) ==
LOC: ERS 22:17 → 2SW 07-27 00:30
PROVIDERS: ADMIT Internal Medicine; ATTEND Internal Medicine
DX: R07.89 Other chest pain (principal); I12.9 Hypertensive chronic kidney disease with stage 1 through stage 4 chronic kidney disease, or unspecified chronic kidney disease; E11.22 Type 2 diabetes mellitus with diabetic chronic kidney disease; N18.9 Chronic kidney disease, unspecified; E78.5 Hyperlipidemia, unspecified; I25.2 Old myocardial infarction; K21.9 Gastro-esophageal reflux disease without esophagitis; F41.9 Anxiety disorder, unspecified; J44.9 Chronic obstructive pulmonary disease, unspecified; Z88.0 Allergy status to penicillin; Z88.5 Allergy status to narcotic agent; Z88.8 Allergy status to other drugs, medicaments and biological substances; Z95.1 Presence of aortocoronary bypass graft
CPT/HCPCS: 36415; 71045; 71275; 72191; 74175; 82553; 84484; 85379; 93005; 93010; 94664; 96361; 96374; G0378; J2405; Q9966

== ENCOUNTER 2019-07-30 22:19 | Observation (INO) | payer OTHER ==
--- NOTE | 2019-07-30 22:49 | RAD ---
Portable chest: HISTORY: Chest pain COMPARISON: 07/26/2019 FINDINGS: Lung vann are clear. Heart and mediastinum appear unremarkable. Vascularity is normal. Visualized osseous structures unremarkable. IMPRESSION: No acute finding
[2019-07-30 22:53] LABS: #Basophils 0.1 thou/uL (0.0-0.2); #Eosinphils 0.2 thou/uL (0.0-0.7); #Lymphocytes 1.6 thou/uL (1.20-3.40); #Monocytes 0.6 thou/uL (0.11-0.59); #Neutrophils 6.7 thou/uL (1.40-6.50); %Basophils 0.5 % (0.0-1.0); %Eosinophils 2.6 % (0.0-10.0); %Lymphocytes 17.2 % (21.0-51.0); %Neutrophils 72.7 % (42.0-75.0); Hemoglobin 12.7 g/dL (14.0-18.0); Mean Corpuscular Hemoglobin 30.2 pg (27.0-31.0); Mean Corpuscular Volume 91.6 fL (78.0-98.0); Mean Platelet Volume 7.8 fL (7.4-10.4); Platelet Count 258 thou/uL (130-400); White Blood Cell (WBC) Count 9.2 thou/uL (4.8-10.8)
[2019-07-30 23:24] LABS: ALT (SGPT) 32 U/L (8-55); AST (SGOT) 22 U/L (5-34); Albumin 3.4 g/dL (3.4-4.8); Alkaline Phosphatase 165 U/L (40-110); Anion Gap 13 mmol/L (10-20); BUN (Urea Nitrogen) 11 mg/dL (8.4-25.7); Bilirubin, Total 0.3 mg/dL (0.2-1.2); CK (CPK) 31 U/L (30-200); Calc. Creatinine Clearance 0 mL/min (70-130); Calcium 8.4 mg/dL (7.8-10.44); Carbon Dioxide 18 mmol/L (23-31); Chloride 112 mmol/L (98-107); Estimated GFR-MDRD 68; Globulin 2.6 g/dL (2.4-3.5); Glucose 112 mg/dL (80-115); Potassium 3.6 mmol/L (3.5-5.1); Sodium 139 mmol/L (136-145)
[2019-07-31] MEDS ORDERED: Nitroglycerin 2% Ointment 1 INCH/1 GM Packet ONE (00:31)
[2019-07-31 02:17] LABS: Troponin I Less than 0.010 ng/mL (< 0.028)
[2019-07-31] MEDS ORDERED: Acetaminophen 325 MG TAB ONE (04:51)
[2019-07-31] MEDS ORDERED: Morphine 2 MG/ML SYRINGE SLOW IVP SCH (06:00)
[2019-07-31] MEDS ORDERED: Morphine 2 MG/ML SYRINGE ONE (06:06)
[2019-07-31 07:04] LABS: Troponin I Less than 0.010 ng/mL (< 0.028)
[2019-07-31] MEDS ORDERED: Ondansetron PF 4 MG/2 ML Vial IVP PRN (07:17)
[2019-07-31] MEDS ORDERED: Ondansetron ODT 4 MG TAB PO PRN (07:17)
[2019-07-31] MEDS ORDERED: HYDROcodone/Acetaminophen 5/325 mg Tablet PO PRN (07:17)
[2019-07-31] MEDS ORDERED: Senokot S 8.6-50 MG TAB PO PRN (07:17)
[2019-07-31] MEDS ORDERED: Bisacodyl 5 MG TAB PO PRN (07:17)
[2019-07-31] MEDS ORDERED: Acetaminophen 325 MG TAB PO PRN (07:17)
[2019-07-31] MEDS ORDERED: Calcium Carbonate 500 MG ChewTAB PO PRN (07:17)
[2019-07-31] MEDS ORDERED: Senokot 8.6 MG TAB PO PRN ×2 (07:20→07:53)
[2019-07-31] MEDS ORDERED: Furosemide 20 MG TAB PO PRN (07:20)
[2019-07-31] MEDS ORDERED: diphenhydrAMINE 25 MG CAP PO PRN (07:23)
[2019-07-31] MEDS ORDERED: Benzonatate 100 MG CAP PO PRN (07:23)
[2019-07-31] MEDS ORDERED: Labetalol HCl 100 MG/20 ML VIAL SLOW IVP PRN (07:23)
[2019-07-31] MEDS ORDERED: Docusate 100 MG CAP PO PRN (07:23)
[2019-07-31] MEDS ORDERED: Morphine 2 MG/ML SYRINGE SLOW IVP PRN (07:44)
[2019-07-31 08:08] VITALS: BMI 29.9
[2019-07-31] MEDS ORDERED: Famotidine 20 MG TAB PO SCH (09:00)
[2019-07-31] MEDS ORDERED: Carvedilol 6.25 MG TAB PO SCH (09:00)
[2019-07-31] MEDS ORDERED: DESVENLAFAXINE SUCCINATE PO SCH (09:00)
[2019-07-31] MEDS ORDERED: Isosorbide Mononitrate (ER) 30 MG TAB PO SCH (09:00)
[2019-07-31] MEDS ORDERED: Lisinopril 10 MG TAB PO SCH (09:00)
[2019-07-31] MEDS ORDERED: Non-Formulary Item 1 EACH (Fluticasone/Salmeterol [Advair Diskus 250/50] 1 PUFF) INH SCH (09:00)
[2019-07-31] MEDS ORDERED: HYDROcodone/Acetaminophen 7.5/325 mg Tablet PO PRN (09:05)
[2019-07-31] MEDS: Venlafaxine HCl XR 75 MG CAP PO SCH (09:07)
[2019-07-31] MEDS: Lisinopril 2.5 MG TAB PO SCH ×2 (09:08→20:39)
[2019-07-31] MEDS: Aspirin Chewable 81 MG TAB PO SCH (09:08)
[2019-07-31] MEDS: Atorvastatin Calcium 40 MG TAB PO SCH (09:09)
[2019-07-31] MEDS: Carvedilol 3.125 MG TAB PO SCH ×2 (09:09→20:36)
--- NOTE | 2019-07-31 14:17 | CON ---
DATE OF CONSULTATION: REASON FOR CONSULTATION: Chest pain. Dr. Song Lopez is the primary strategic communications manager. HISTORY OF PRESENT ILLNESS: Mr. Levy is a 64-year-old gentleman who has multiple hospitalizations over the last several months for recurrent chest pain. He was seen and evaluated at [facility], where he underwent coronary angiography by Dr. Johnny Aguillon. He had graft to TOBIN and graft to an OM with no graft to diagonal branch, and no graft to right coronary artery. His LAD, circumflex artery, and right coronary artery were occluded. There was no bypass noted to the right coronary artery. Medical therapy is recommended. Mr. Levy again has recurrent pain and proceeded to the emergency room, where he was subsequently admitted. Please see Dr. Lopez' last note for full consultation. PHYSICAL EXAMINATION: GENERAL: Patient is a pleasant male who is in no acute distress. The patient appears their stated age. VITAL SIGNS: Blood pressure 130/82, pulse 91, temperature 98.2. NEUROLOGIC: The patient is alert and oriented x3 with no focal neurologic deficits. HEENT: Sclerae without icterus. Mouth has moist mucous membranes with normal pallor. NECK: No JVD. Carotid upstroke brisk. No bruits bilaterally. LUNGS: Clear to auscultation with unlabored respirations. BACK: No scoliosis or kyphosis. CARDIAC: Regular rate and rhythm with normal S1 and S2. No S3 or S4 noted. No significant rubs, murmurs, thrills, or gallops noted throughout the precordium. PMI is not displaced. There is no parasternal heave. ABDOMEN: Soft, nontender, nondistended. No peritoneal signs present. No hepatosplenomegaly. No abnormal striae. EXTREMITIES: 2+ femoral and 2+ dorsalis pedis pulses. No cyanosis, clubbing, or edema. SKIN: No gross abnormalities. PERTINENT LABORATORY DATA: Hemoglobin 12.7, creatinine 1.10. Troponin negative. EKG; normal sinus rhythm with no acute ST or T wave changes. IMPRESSION: Recurrent angina. RECOMMENDATIONS: Continue aspirin, atorvastatin in addition to carvedilol. Continue Ranexa. Current isosorbide at 60 mg q.a.m., increase to 90 mg q.a.m. Otherwise, I have no further recommendations. Job ID: [id number]
--- NOTE | 2019-07-31 15:29 | PDOC.HHP ---
Hospitalist HPI - History of Present Illness Chest pain History of Present Illness: 64-year-old gentleman with past medical history of coronary artery disease with recent cardiac catheterization with pathology noted who was recommended medical management alone, hypertension, hyperlipidemia, and osteoarthritis presents with chest pain. I find the patient on the medical unit telemetry he is just received morphine. Patient is no longer experiencing chest pain. He states that it came on yesterday all of a sudden was midsternal and had radiation to the left arm. Patient with no associated palpitations, diaphoresis, nausea, or vomiting. Cardiology consultation requested for further recommendations. With the recent cardiac catheterization and recommendations of medical management we will see what cardiology has to offer, though the troponins and EKG are negative for acute pathology. Hospitalist ROS - Review of Systems All other systems reviewed; all pertinent +/- noted in HPI/Subj - Medication Medications: Active Medications Generic Name Dose Route Start Last Admin Trade Name Freq PRN Reason Stop Dose Admin Aspirin 81 mg 07/31/19 09:00 07/31/19 09:08 Aspirin Chewable PO 81 mg DAILY AGATA Administration Atorvastatin Calcium 40 mg 07/31/19 09:00 07/31/19 09:09 Lipitor PO 40 mg DAILY AGATA Administration Carvedilol 3.125 mg 07/31/19 09:00 07/31/19 09:09 Coreg PO 3.125 mg BID AGATA Administration Docusate Sodium 100 mg 07/31/19 07:23 07/31/19 09:08 Colace PO 100 mg BIDPRN PRN Administration Constipation Lisinopril 2.5 mg 07/31/19 09:00 07/31/19 09:08 Zestril PO 2.5 mg BID AGATA Administration Pantoprazole Sodium 40 mg 07/31/19 09:00 07/31/19 09:08 Protonix PO 40 mg DAILY AGATA Administration Ranolazine 500 mg 07/31/19 09:00 07/31/19 09:08 Ranexa PO 500 mg BID AGATA Administration Sodium Chloride 10 ml 07/31/19 09:00 07/31/19 09:09 Flush - Normal Saline IVF 10 ml Q12HR AGATA Administration Venlafaxine HCl 75 mg 07/31/19 09:00 07/31/19 09:07 Effexor Xr PO 75 mg DAILY AGATA Administration Hospitalist History - Past Medical History Source: patient Cardiac: reports: CAD, HTN Pulmonary: reports: heart attack, hypertension Gastrointestinal: reports: GERD Heme/Onc: denies: Cancer Psych: reports: Depression Musculoskeletal: reports: Osteoarthritis Renal/: denies: Chronic renal failure Dermatology: denies: Psoriasis - Family History Family History: reports: hypertension - Social History Alcohol: reports: Rare Drugs: reports: none Living Situation: Alone Activity level: uses cane/walker - Exam General Appearance: NAD, awake alert Eye: anicteric sclera ENT: normocephalic atraumatic, moist mucosa Neck: supple, symmetric, no lymphadenopathy Heart: RRR, no murmur, no gallops, no rubs, normal peripheral pulses Respiratory: CTAB, no wheezes, no rales, no ronchi Gastrointestinal: soft, non-tender, non-distended, no guarding, no rigidity Extremities: no cyanosis, no edema Skin: normal turgor, no rashes Neurological: cranial nerve grossly intact, normal sensation to touch, no focal deficits Musculoskeletal: generalized weakness Psychiatric: normal affect, A&O x 3 Hospitalist Results - Labs Result Diagrams: 07/30/19 22:43 07/30/19 22:43 Lab results: WBC 9.2 thou/uL (4.8-10.8) 07/30/19 22:43 Hgb 12.7 g/dL (14.0-18.0) L 07/30/19 22:43 Hct 38.5 % (42.0-52.0) L 07/30/19 22:43 MCV 91.6 fL (78.0-98.0) 07/30/19 22:43 Plt Count 258 thou/uL (130-400) 07/30/19 22:43 Neutrophils % 72.7 % (42.0-75.0) 07/30/19 22:43 Sodium 139 mmol/L (136-145) 07/30/19 22:43 Potassium 3.6 mmol/L (3.5-5.1) 07/30/19 22:43 Chloride 112 mmol/L (98-107) H 07/30/19 22:43 Carbon Dioxide 18 mmol/L (23-31) L 07/30/19 22:43 BUN 11 mg/dL (8.4-25.7) 07/30/19 22:43 Creatinine 1.10 mg/dL (0.7-1.3) 07/30/19 22:43 Glucose 112 mg/dL (80-115) 07/30/19 22:43 Calcium 8.4 mg/dL (7.8-10.44) 07/30/19 22:43 Total Bilirubin 0.3 mg/dL (0.2-1.2) 07/30/19 22:43 AST 22 U/L (5-34) 07/30/19 22:43 ALT 32 U/L (8-55) 07/30/19 22:43 Alkaline Phosphatase 165 U/L (40-110) H 07/30/19 22:43 Creatine Kinase 31 U/L (30-200) 07/30/19 22:43 Troponin I Less than 0.010 ng/mL (< 0.028) 07/31/19 06:26 Serum Total Protein 6.0 g/dL (5.8-8.1) 07/30/19 22:43 Albumin 3.4 g/dL (3.4-4.8) 07/30/19 22:43 - Radiology Interpretation Chest x-ray Status: image reviewed by in Hospitalist H&P A/P - Problem (1) Chest pain Code(s): R07.9 - CHEST PAIN, UNSPECIFIED Status: Acute (2) CAD (coronary artery disease) Code(s): I25.10 - ATHSCL HEART DISEASE OF [place] CORONARY ARTERY W/O ANG PCTRS Status: Chronic (3) Coronary Arteriosclerosis in [place] Artery Code(s): I25.10 - ATHSCL HEART DISEASE OF [place] CORONARY ARTERY W/O ANG PCTRS Status: Chronic (4) Dyslipidemia Code(s): E78.5 - HYPERLIPIDEMIA, UNSPECIFIED Status: Chronic (5) Hypertension Code(s): I10 - ESSENTIAL (PRIMARY) HYPERTENSION Status: Chronic (6) Obesity Code(s): E66.9 - OBESITY, UNSPECIFIED Status: Chronic - Plan Plan: Plan: medical unit with telemetry cardiology consultation, recommendations appreciated long-acting nitrates including Ranexa for chest pain increase imdur cardiomyopathy regimen ASA medical management alone has been recommended for the patient after recent cardiac catheterization roughly 6 weeks ago continue home medications as able replace electrolytes as needed blood pressure control
[2019-07-31] MEDS: Mometasone/Formoterol 120 PUFF INHALER INH SCH (18:39)
[2019-07-31] MEDS: Clopidogrel Bisulfate 75 MG TAB PO SCH (20:37)
[2019-07-31] MEDS: Tamsulosin HCl 0.4 MG CAP PO SCH (20:37)
[2019-07-31] MEDS: Melatonin 3 MG TAB PO SCH (20:41)
[2019-07-31] MEDS ORDERED: Non-Formulary Item 1 EACH (Melatonin [Melatonin] 3 MG) PO SCH (21:00)
[2019-08-01 05:56] LABS: #Basophils 0.1 thou/uL (0.0-0.2); #Eosinphils 0.3 thou/uL (0.0-0.7); #Lymphocytes 1.4 thou/uL (1.20-3.40); #Monocytes 0.6 thou/uL (0.11-0.59); #Neutrophils 5.4 thou/uL (1.40-6.50); %Basophils 1.2 % (0.0-1.0); %Eosinophils 4.4 % (0.0-10.0); %Monocytes 7.6 % (0.0-10.0); %Neutrophils 68.9 % (42.0-75.0); Hemoglobin 12.6 g/dL (14.0-18.0); Mean Corpuscular HGB CONC 33.5 g/dL (32.0-36.0); Mean Corpuscular Hemoglobin 30.5 pg (27.0-31.0); Mean Corpuscular Volume 91.2 fL (78.0-98.0); Platelet Count 247 thou/uL (130-400); RBC Distribution Width 13.1 % (11.5-14.5); Red Blood Cell (RBC) Count 4.13 mill/uL (4.70-6.10); White Blood Cell (WBC) Count 7.9 thou/uL (4.8-10.8)
[2019-08-01 06:16] LABS: Anion Gap 11 mmol/L (10-20); BUN (Urea Nitrogen) 11 mg/dL (8.4-25.7); Calc. Creatinine Clearance 106 mL/min (70-130); Calcium 8.5 mg/dL (7.8-10.44); Carbon Dioxide 20 mmol/L (23-31); Chloride 109 mmol/L (98-107); Estimated GFR-MDRD 75; Glucose 94 mg/dL (80-115); Potassium 3.6 mmol/L (3.5-5.1); Sodium 136 mmol/L (136-145)
[2019-08-01] MEDS: Mometasone/Formoterol 120 PUFF INHALER INH SCH ×2 (07:32→18:39)
[2019-08-01] MEDS: Aspirin Chewable 81 MG TAB PO SCH (08:43)
[2019-08-01] MEDS: Atorvastatin Calcium 40 MG TAB PO SCH (08:43)
[2019-08-01] MEDS: Venlafaxine HCl XR 75 MG CAP PO SCH (08:43)
[2019-08-01] MEDS: Lisinopril 2.5 MG TAB PO SCH ×2 (08:43→19:59)
[2019-08-01] MEDS: Carvedilol 3.125 MG TAB PO SCH ×2 (08:44→19:59)
--- NOTE | 2019-08-01 11:53 | PDOC.HOSPP ---
- Subjective Subjective: Seen and examined. Less chest pain on Ranexa and Imdur. Patient slept well. No other acute complaints at this time. - Objective Vital Signs & Weight: Vital Signs (12 hours) Temp Pulse Resp BP Pulse Ox 08/01/19 08:43 79 08/01/19 07:38 97.6 F 75 20 139/71 99 08/01/19 07:32 79 12 08/01/19 04:40 98.1 F 74 18 156/84 H 98 08/01/19 02:21 98 08/01/19 00:05 138/69 Weight Weight 220 lb 14.4 oz I&O: 07/31/19 08/01/19 08/02/19 06:59 06:59 06:59 Intake Total 1440 Output Total 475 Balance 965 Result Diagrams: 08/01/19 05:13 08/01/19 05:13 Radiology Reviewed by me: Yes (CXR) Hospitalist ROS - Review of Systems All other systems reviewed; all pertinent +/- noted in HPI/Subj - Medication Medications: Active Medications Generic Name Dose Route Start Last Admin Trade Name Freq PRN Reason Stop Dose Admin Aspirin 81 mg 07/31/19 09:00 08/01/19 08:43 Aspirin Chewable PO 81 mg DAILY AGATA Administration Atorvastatin Calcium 40 mg 07/31/19 09:00 08/01/19 08:43 Lipitor PO 40 mg DAILY AGATA Administration Bisacodyl 10 mg 07/31/19 07:17 08/01/19 08:43 Dulcolax PO 10 mg DAILYPRN PRN Administration Constipation Carvedilol 3.125 mg 07/31/19 09:00 08/01/19 08:44 Coreg PO 3.125 mg BID AGATA Administration Clopidogrel Bisulfate 75 mg 07/31/19 21:00 07/31/19 20:37 Plavix PO 75 mg HS AGATA Administration Docusate Sodium 100 mg 07/31/19 07:23 07/31/19 09:08 Colace PO 100 mg BIDPRN PRN Administration Constipation Isosorbide Mononitrate 90 mg 08/01/19 09:00 08/01/19 08:44 Imdur PO 90 mg DAILY AGATA Administration Lisinopril 2.5 mg 07/31/19 09:00 08/01/19 08:43 Zestril PO 2.5 mg BID AGATA Administration Melatonin 3 mg 07/31/19 21:00 07/31/19 20:41 Melatonin PO 3 mg HS AGATA Administration Mometasone Furoate/Formoterol Fumar 2 puff 07/31/19 18:30 08/01/19 07:32 Dulera 200 Mcg/5 Mcg Inhaler INH 2 puff BID-RT AGATA Administration Pantoprazole Sodium 40 mg 07/31/19 09:00 08/01/19 08:44 Protonix PO 40 mg DAILY AGATA Administration Ranolazine 500 mg 07/31/19 09:00 08/01/19 08:43 Ranexa PO 500 mg BID AGATA Administration Sodium Chloride 10 ml 07/31/19 09:00 08/01/19 08:44 Flush - Normal Saline IVF 10 ml Q12HR AGATA Administration Tamsulosin HCl 0.4 mg 07/31/19 21:00 07/31/19 20:37 Flomax PO 0.4 mg HS AGATA Administration Venlafaxine HCl 75 mg 07/31/19 09:00 08/01/19 08:43 Effexor Xr PO 75 mg DAILY AGATA Administration - Exam General Appearance: NAD, awake alert Eye: anicteric sclera ENT: normocephalic atraumatic, moist mucosa Neck: supple, symmetric, no lymphadenopathy Heart: no murmur, no gallops, no rubs Respiratory: CTAB, no wheezes, no rales, no ronchi Gastrointestinal: soft, non-tender, no guarding, no rigidity Extremities: no edema Skin: no lesions, no rashes Neurological: cranial nerve grossly intact, no focal deficits Musculoskeletal: generalized weakness Psychiatric: normal affect, A&O x 3 Hosp A/P (1) Chest pain Code(s): R07.9 - CHEST PAIN, UNSPECIFIED Status: Acute (2) CAD (coronary artery disease) Code(s): I25.10 - ATHSCL HEART DISEASE OF [place] CORONARY ARTERY W/O ANG PCTRS Status: Chronic (3) Coronary Arteriosclerosis in [place] Artery Code(s): I25.10 - ATHSCL HEART DISEASE OF [place] CORONARY ARTERY W/O ANG PCTRS Status: Chronic (4) Dyslipidemia Code(s): E78.5 - HYPERLIPIDEMIA, UNSPECIFIED Status: Chronic (5) Hypertension Code(s): I10 - ESSENTIAL (PRIMARY) HYPERTENSION Status: Chronic (6) Obesity Code(s): E66.9 - OBESITY, UNSPECIFIED Status: Chronic - Plan Plan: medical unit with telemetry cardiology consultation, recommendations appreciated further plan of care per patient's primary day care home mother Dr. Lopez in a.m. chest pain improved Imdur and Ranexa cardiomyopathy regimen ASA medical management alone has been recommended for the patient after recent cardiac catheterization roughly 6 weeks ago. Can continue other home medications as able replace electrolytes as needed blood pressure control
--- NOTE | 2019-08-01 13:43 | PDOC.CPN ---
- Subjective Date: 08/01/19 Time: 13:40 Interval history: Patient with c/o CP today at rest. Walked in [place] with cardiac rehab. No pain, but MARTINEZ similar to normal per patient. - Review of Systems General: denies: fever/chills, weight/appetite/sleep changes, night sweats, fatigue Respiratory: denies: cough, congestion, shortness of breath, exercise intolerance Cardiovascular: reports: chest pain Gastrointestinal: denies: nausea, vomiting, diarrhea, constipation, abd pain, GI bleeding Musculoskeletal: denies: pain, tenderness, stiffness, swelling, arthritis/ arthralgias Neurological: denies: numbness, syncope, seizure, weakness - Objective Allergies/Adverse Reactions: Allergies Allergy/AdvReac Type Severity Reaction Status Date / Time zolpidem tartrate Allergy Intermediate Verified 07/31/19 08:16 [From Ambien] meperidine HCl [From Demerol] Allergy Verified 07/31/19 08:16 Penicillins Allergy Verified 07/31/19 08:16 Visit Medications: Current Medications Acetaminophen (Tylenol) 650 mg PO Q4H PRN PRN Reason: Headache/Fever/Mild Pain (1-3) Hydrocodone Bitart/Acetaminophen ([place] 5/325) 1 tab PO Q4H PRN PRN Reason: Moderate Pain (4-6) Hydrocodone Bitart/Acetaminophen ([place] 7.5/325) 1 tab PO Q4H PRN PRN Reason: Moderate to Severe Pain (6-10) Albuterol/Ipratropium (Duoneb) 3 ml NEB [id number] PRN PRN Reason: SOB &/or Wheezing Aspirin (Aspirin Chewable) 81 mg PO DAILY [facility] Last Admin: 08/01/19 08:43 Dose: 81 mg Atorvastatin Calcium (Lipitor) 40 mg PO DAILY [facility] Last Admin: 08/01/19 08:43 Dose: 40 mg Benzonatate (Tessalon) 100 mg PO Q4H PRN PRN Reason: Cough Bisacodyl (Dulcolax) 10 mg PO DAILYPRN PRN PRN Reason: Constipation Last Admin: 08/01/19 08:43 Dose: 10 mg Calcium Carbonate (Tums) 1,000 mg PO Q4H PRN PRN Reason: Heartburn or Indigestion Carvedilol (Coreg) 3.125 mg PO BID [facility] Last Admin: 08/01/19 08:44 Dose: 3.125 mg Clopidogrel Bisulfate (Plavix) 75 mg PO HS [facility] Last Admin: 07/31/19 20:37 Dose: 75 mg Diphenhydramine HCl (Benadryl) 25 mg PO Q6H PRN PRN Reason: Itching & Insomnia Docusate Sodium (Colace) 100 mg PO BIDPRN PRN PRN Reason: Constipation Last Admin: 07/31/19 09:08 Dose: 100 mg Furosemide (Lasix) 20 mg PO HS PRN PRN Reason: fluid Isosorbide Mononitrate (Imdur) 90 mg PO DAILY [facility] Last Admin: 08/01/19 08:44 Dose: 90 mg Labetalol HCl (Normodyne) 10 mg SLOW IVP Q4H PRN PRN Reason: SBP Greater Than 180 Lisinopril (Zestril) 2.5 mg PO BID [facility] Last Admin: 08/01/19 08:43 Dose: 2.5 mg Melatonin (Melatonin) 3 mg PO HS [facility] Last Admin: 07/31/19 20:41 Dose: 3 mg Mometasone Furoate/Formoterol Fumar (Dulera 200 Mcg/5 Mcg Inhaler) 2 puff INH BID-RT [facility] Last Admin: 08/01/19 07:32 Dose: 2 puff Ondansetron HCl (Zofran Odt) 4 mg PO Q6H PRN PRN Reason: Nausea/Vomiting Ondansetron HCl (Zofran) 4 mg IVP Q6H PRN PRN Reason: Nausea/Vomiting Pantoprazole Sodium (Protonix) 40 mg PO DAILY [facility] Last Admin: 08/01/19 08:44 Dose: 40 mg Ranolazine (Ranexa) 500 mg PO BID [facility] Last Admin: 08/01/19 08:43 Dose: 500 mg Senna (Senokot) 1 tab PO DAILY PRN PRN Reason: Constipation Senna/Docusate Sodium (Senokot S) 2 tab PO BID PRN PRN Reason: Constipation Sodium Chloride (Flush - Normal Saline) 10 ml IVF Q12HR [facility] Last Admin: 08/01/19 08:44 Dose: 10 ml Sodium Chloride (Flush - Normal Saline) 10 ml IVF PRN PRN PRN Reason: Saline Flush Tamsulosin HCl (Flomax) 0.4 mg PO HS [facility] Last Admin: 07/31/19 20:37 Dose: 0.4 mg Venlafaxine HCl (Effexor Xr) 75 mg PO DAILY [facility] Last Admin: 08/01/19 08:43 Dose: 75 mg Vital Signs & Weight: Vital Signs Temp Pulse Resp BP Pulse Ox 08/01/19 11:31 97.4 F L 83 20 110/74 99 08/01/19 08:43 79 08/01/19 07:38 97.6 F 75 20 139/71 99 08/01/19 07:32 79 12 08/01/19 04:40 98.1 F 74 18 156/84 H 98 08/01/19 02:21 98 Weight 220 lb 14.4 oz - Physical Exam General: alert & oriented x3 HEENT: mucus membranes moist Neck: supple neck Cardiac: regular rate and rhythm Lungs: clear to auscultation Neuro: grossly intact Abdomen: soft Extremities: no cyanosis - Labs Result Diagrams: 08/01/19 05:13 08/01/19 05:13 Troponin/CKMB Troponin I Less than 0.010 ng/mL (< 0.028) 07/31/19 06:26 - Telemetry Sinus rhythms and dysrhythmias: sinus rhythm - Assessment/Plan Assessment/Plan: 1. CP 2. CAD s/p previous CABG and graft closure 3. HTN Imdur increased today. Patient with pain earlier. Sounds atypical in nature, but will continue observation. probably home tomorrow.
[2019-08-01] MEDS: Clopidogrel Bisulfate 75 MG TAB PO SCH (19:59)
[2019-08-01] MEDS: Tamsulosin HCl 0.4 MG CAP PO SCH (20:00)
[2019-08-01] MEDS: Melatonin 3 MG TAB PO SCH (21:52)
[2019-08-02] MEDS: Mometasone/Formoterol 120 PUFF INHALER INH SCH (07:14)
[2019-08-02] MEDS: Lisinopril 2.5 MG TAB PO SCH (09:32)
[2019-08-02] MEDS: Aspirin Chewable 81 MG TAB PO SCH (09:32)
[2019-08-02] MEDS: Atorvastatin Calcium 40 MG TAB PO SCH (09:32)
[2019-08-02] MEDS: Carvedilol 3.125 MG TAB PO SCH (09:32)
[2019-08-02] MEDS: Venlafaxine HCl XR 75 MG CAP PO SCH (09:32)
[2019-08-02 12:04] VITALS: TEMP 98.6
[2019-08-02 12:15] VITALS: BP 157/87
--- NOTE | 2019-08-02 12:27 | PDOC.CPN ---
- Subjective Date: 08/02/19 Time: 08:30 Interval history: The pt seen and examined. No overnight events. No cardiac complaints. - Objective Allergies/Adverse Reactions: Allergies Allergy/AdvReac Type Severity Reaction Status Date / Time zolpidem tartrate Allergy Intermediate Verified 07/31/19 08:16 [From Ambien] meperidine HCl [From Demerol] Allergy Verified 07/31/19 08:16 Penicillins Allergy Verified 07/31/19 08:16 Visit Medications: Current Medications Acetaminophen (Tylenol) 650 mg PO Q4H PRN PRN Reason: Headache/Fever/Mild Pain (1-3) Last Admin: 08/01/19 20:03 Dose: 650 mg Hydrocodone Bitart/Acetaminophen ([place] 5/325) 1 tab PO Q4H PRN PRN Reason: Moderate Pain (4-6) Hydrocodone Bitart/Acetaminophen ([place] 7.5/325) 1 tab PO Q4H PRN PRN Reason: Moderate to Severe Pain (6-10) Albuterol/Ipratropium (Duoneb) 3 ml NEB [id number] PRN PRN Reason: SOB &/or Wheezing Aspirin (Aspirin Chewable) 81 mg PO DAILY [facility] Last Admin: 08/02/19 09:32 Dose: 81 mg Atorvastatin Calcium (Lipitor) 40 mg PO DAILY [facility] Last Admin: 08/02/19 09:32 Dose: 40 mg Benzonatate (Tessalon) 100 mg PO Q4H PRN PRN Reason: Cough Bisacodyl (Dulcolax) 10 mg PO DAILYPRN PRN PRN Reason: Constipation Last Admin: 08/01/19 08:43 Dose: 10 mg Calcium Carbonate (Tums) 1,000 mg PO Q4H PRN PRN Reason: Heartburn or Indigestion Carvedilol (Coreg) 3.125 mg PO BID [facility] Last Admin: 08/02/19 09:32 Dose: 3.125 mg Clopidogrel Bisulfate (Plavix) 75 mg PO HS [facility] Last Admin: 08/01/19 19:59 Dose: 75 mg Diphenhydramine HCl (Benadryl) 25 mg PO Q6H PRN PRN Reason: Itching & Insomnia Docusate Sodium (Colace) 100 mg PO BIDPRN PRN PRN Reason: Constipation Last Admin: 07/31/19 09:08 Dose: 100 mg Furosemide (Lasix) 20 mg PO HS PRN PRN Reason: fluid Isosorbide Mononitrate (Imdur) 90 mg PO DAILY [facility] Last Admin: 08/02/19 09:32 Dose: 90 mg Labetalol HCl (Normodyne) 10 mg SLOW IVP Q4H PRN PRN Reason: SBP Greater Than 180 Lisinopril (Zestril) 2.5 mg PO BID [facility] Last Admin: 08/02/19 09:32 Dose: 2.5 mg Melatonin (Melatonin) 3 mg PO HS [facility] Last Admin: 08/01/19 21:52 Dose: 3 mg Mometasone Furoate/Formoterol Fumar (Dulera 200 Mcg/5 Mcg Inhaler) 2 puff INH BID-RT [facility] Last Admin: 08/02/19 07:14 Dose: Not Given Ondansetron HCl (Zofran Odt) 4 mg PO Q6H PRN PRN Reason: Nausea/Vomiting Ondansetron HCl (Zofran) 4 mg IVP Q6H PRN PRN Reason: Nausea/Vomiting Pantoprazole Sodium (Protonix) 40 mg PO DAILY [facility] Last Admin: 08/02/19 09:32 Dose: 40 mg Ranolazine (Ranexa) 500 mg PO BID [facility] Last Admin: 08/02/19 09:32 Dose: 500 mg Senna (Senokot) 1 tab PO DAILY PRN PRN Reason: Constipation Senna/Docusate Sodium (Senokot S) 2 tab PO BID PRN PRN Reason: Constipation Last Admin: 08/01/19 20:03 Dose: 2 tab Sodium Chloride (Flush - Normal Saline) 10 ml IVF Q12HR [facility] Last Admin: 08/02/19 09:36 Dose: 10 ml Sodium Chloride (Flush - Normal Saline) 10 ml IVF PRN PRN PRN Reason: Saline Flush Tamsulosin HCl (Flomax) 0.4 mg PO HS [facility] Last Admin: 08/01/19 20:00 Dose: 0.4 mg Venlafaxine HCl (Effexor Xr) 75 mg PO DAILY [facility] Last Admin: 08/02/19 09:32 Dose: 75 mg Vital Signs & Weight: Vital Signs Temp Pulse Pulse Pulse Resp BP BP 08/02/19 11:40 98.6 F 83 18 08/02/19 09:49 76 89 157/87 H 180/86 H 08/02/19 09:32 77 08/02/19 07:57 98.2 F 77 18 08/02/19 04:27 97.6 F 80 18 08/02/19 02:55 BP Pulse Ox 08/02/19 11:40 110/72 99 08/02/19 09:49 08/02/19 09:32 08/02/19 07:57 147/84 H 99 08/02/19 04:27 125/72 98 08/02/19 02:55 96 Weight 218 lb 12.8 oz - Physical Exam General: alert & oriented x3 HEENT: mucus membranes moist Neck: supple neck Cardiac: regular rate and rhythm, S1/S2 Lungs: clear to auscultation Neuro: cranial nerve 2-12 intact Skin: clear Musculoskeletal: normal range of motion - Labs Result Diagrams: 08/01/19 05:13 08/01/19 05:13 Troponin/CKMB Troponin I Less than 0.010 ng/mL (< 0.028) 07/31/19 06:26 - Telemetry Sinus rhythms and dysrhythmias: sinus rhythm - Assessment/Plan Assessment/Plan: 1. CP - stable with Ranexa 500mg BID and Imdur 90mg qd; 2. CAD with hx of CABG in 2013 with TOBIN-LAD, SVG-diag, SVG-OM and 50% stenosis in RCA; and stents - S/p LHC in 05/[address] Aguillon; cont. medical tx with Ranexa and Imdur 90mg qd; 3. HTN - stable 4. HLD 5. CKD 6. COPD 7. DM type 2 8. Anxiety * From Cardiac standpoint, the pt is stable to d/c home with Ranexa 500mg BID and Imdur 90mg qd; * The pt will f/u with Dr Lopez' office within 1-2wks.
--- NOTE | 2019-08-02 14:04 | DIS ---
DATE OF ADMISSION: 07/31/2019 DATE OF DISCHARGE: 08/02/2019 DISCHARGE DISPOSITION: Home. FOLLOWUP: Follow up with primary care physician, Birgit Argueta in 1 week. Follow up with Dr. Lopez in 2 to 3 weeks. ALLERGIES: THE PATIENT IS ALLERGIC TO: 1. AMBIEN. 2. DEMEROL. 3. PENICILLIN. DISCHARGE MEDICATIONS: Imdur ER dose was increased to 90 mg daily. The patient will continue Ranexa 500 mg b.i.d. All other home medications including aspirin and Plavix were left unchanged. The patient was extensively counseled to be compliant with all of his medications. BRIEF HOSPITAL COURSE: The patient is a 64-year-old male with coronary artery disease, status post CABG, presented to the emergency room with chest discomfort. Please refer to the history and physical for further details. The patient was admitted to the telemetry unit with a diagnosis of chest discomfort, rule out acute coronary syndrome. His serial troponin remained negative. His isosorbide mononitrate dose was increased to 90 mg daily from 60 mg daily. He is chest pain free at this time. He was evaluated by Cardiology, who recommended to continue Ranexa. He had a cardiac catheterization In May of 2019, by Dr. Aguillon, who recommended to continue medical treatment. He appears stable for discharge. He has been cleared by Cardiology. FINAL DIAGNOSES: 1. Chest discomfort. Acute coronary syndrome ruled out. 2. Coronary artery disease with history of coronary artery bypass grafting in 2013, as well as cardiac catheterization in May of 2019. 3. Hypertension. 4. Hyperlipidemia. 5. Chronic obstructive pulmonary disease. 6. Diabetes mellitus, type 2. 7. Anxiety. 8. Chronic kidney disease, stage 2. 9. Mild chronic anemia. 10. Gastroesophageal reflux disease. PLAN: Plan of care was discussed with the patient in detail. He stated understanding. Job ID: [id number]
--- NOTE | 2019-08-08 02:42 | EKG ---
Test Reason : Blood Pressure : / mmHG Vent. Rate : 092 BPM Atrial Rate : 092 BPM P-R Int : 130 ms QRS Dur : 092 ms QT Int : 372 ms P-R-T Axes : 043 031 013 degrees QTc Int : 460 ms Normal sinus rhythm Possible Inferior infarct , age undetermined Abnormal ECG Confirmed by ELDER WISEMAN, LIDA Armenta ([id number]), scientific publications editor SEB HANCOCK ([id number]) on 08/08/2019 2:42:08 AM Referred By: Confirmed By:LIDA FRIEDMAN MD
== END 2019-08-02 13:46 | disposition home or self-care (01) ==
LOC: ERS 22:19 → ERHOLD 07-31 01:12 → 2SW 07-31 07:58
PROVIDERS: ADMIT Hospitalist; ATTEND Hospitalist
DX: R07.89 Other chest pain (principal); E78.5 Hyperlipidemia, unspecified; M19.90 Unspecified osteoarthritis, unspecified site; I25.2 Old myocardial infarction; F32.9 Major depressive disorder, single episode, unspecified; I25.119 Atherosclerotic heart disease of native coronary artery with unspecified angina pectoris; I12.9 Hypertensive chronic kidney disease with stage 1 through stage 4 chronic kidney disease, or unspecified chronic kidney disease; E11.22 Type 2 diabetes mellitus with diabetic chronic kidney disease; N18.2 Chronic kidney disease, stage 2 (mild); D63.1 Anemia in chronic kidney disease; F41.9 Anxiety disorder, unspecified; J44.9 Chronic obstructive pulmonary disease, unspecified; I25.10 Atherosclerotic heart disease of native coronary artery without angina pectoris; K21.9 Gastro-esophageal reflux disease without esophagitis; F12.11 Cannabis abuse, in remission; E66.9 Obesity, unspecified; Z68.29 Body mass index [BMI] 29.0-29.9, adult; Z79.02 Long term (current) use of antithrombotics/antiplatelets; Z79.82 Long term (current) use of aspirin; Z79.899 Other long term (current) drug therapy; Z88.0 Allergy status to penicillin; Z88.5 Allergy status to narcotic agent; Z88.8 Allergy status to other drugs, medicaments and biological substances; Z95.1 Presence of aortocoronary bypass graft; Z95.5 Presence of coronary angioplasty implant and graft
CPT/HCPCS: 36415; 71045; 80048; 80053; 82550; 84484; 85025; 93005; 94664; 94760; 96374; G0378; J2270

== ENCOUNTER 2019-08-31 11:24 | Emergency (ER) | payer OTHER ==
[2019-08-31] MEDS ORDERED: Nitroglycerin 0.4 MG TAB 1 EACH ONE (11:54)
[2019-08-31 12:06] LABS: #Eosinphils 0.1 thou/uL (0.0-0.7); #Lymphocytes 1.1 thou/uL (1.20-3.40); #Monocytes 0.5 thou/uL (0.11-0.59); #Neutrophils 7.7 thou/uL (1.40-6.50); %Basophils 0.1 % (0.0-1.0); %Eosinophils 1.4 % (0.0-10.0); %Lymphocytes 11.7 % (21.0-51.0); %Monocytes 5.4 % (0.0-10.0); %Neutrophils 81.4 % (42.0-75.0); Hemoglobin 13.4 g/dL (14.0-18.0); Mean Corpuscular HGB CONC 33.8 g/dL (32.0-36.0); Mean Corpuscular Hemoglobin 30.5 pg (27.0-31.0); Mean Corpuscular Volume 90.2 fL (78.0-98.0); Mean Platelet Volume 7.8 fL (7.4-10.4); Platelet Count 272 thou/uL (130-400); Red Blood Cell (RBC) Count 4.41 mill/uL (4.70-6.10); White Blood Cell (WBC) Count 9.5 thou/uL (4.8-10.8)
--- NOTE | 2019-08-31 12:06 | RAD ---
XR Chest 1 View Portable HISTORY: Chest pain and tachycardia COMPARISON: 07/30/2019 study. FINDINGS: Heart size within normal limits there are postop sternotomy changes. The lungs are clear of infiltrates. No signs of failure. IMPRESSION: No active intrathoracic disease.
[2019-08-31 12:34] LABS: Albumin 3.5 g/dL (3.4-4.8); Anion Gap 14 mmol/L (10-20); BUN (Urea Nitrogen) 12 mg/dL (8.4-25.7); Bilirubin, Total 0.6 mg/dL (0.2-1.2); Calc. Creatinine Clearance 0 mL/min (70-130); Calcium 8.8 mg/dL (7.8-10.44); Carbon Dioxide 19 mmol/L (23-31); Chloride 107 mmol/L (98-107); Estimated GFR-MDRD 68; Globulin 2.8 g/dL (2.4-3.5); Glucose 112 mg/dL (80-115); Potassium 4.1 mmol/L (3.5-5.1); Protein, Total 6.3 g/dL (5.8-8.1); Sodium 136 mmol/L (136-145)
[2019-08-31 12:35] LABS: ALT (SGPT) 19 U/L (8-55); AST (SGOT) 16 U/L (5-34); Alkaline Phosphatase 143 U/L (40-110)
== END 2019-08-31 17:43 | disposition home or self-care (01) ==
LOC: ERS 11:24
DX: R07.89 Other chest pain (principal); E78.5 Hyperlipidemia, unspecified; E78.00 Pure hypercholesterolemia, unspecified; K21.9 Gastro-esophageal reflux disease without esophagitis; I25.2 Old myocardial infarction; I11.9 Hypertensive heart disease without heart failure; Z79.899 Other long term (current) drug therapy; Z79.82 Long term (current) use of aspirin
CPT/HCPCS: 36415; 71045; 80053; 83880; 84443; 84484; 85025; 93005

== ENCOUNTER 2019-09-02 10:52 | Observation (INO) | payer OTHER ==
[2019-09-02] MEDS ORDERED: Nitroglycerin 2% Ointment 1 INCH/1 GM Packet ONE (11:36)
--- NOTE | 2019-09-02 11:50 | RAD ---
EXAM: CHEST ONE VIEW HISTORY: Chest pain radiating to left arm. COMPARISON: 08/31/2019 FINDINGS: Postsurgical changes related to CABG are again noted. Calcifications of the coronary arteries are par tially visualized. The cardiac silhouette and pulmonary vasculature is within normal limits. The lungs are clear. The osseous structures are intact. Chest is stable compared to prior study. IMPRESSION: No acute cardiopulmonary process.
[2019-09-02 12:01] LABS: #Basophils 0.1 thou/uL (0.0-0.2); #Eosinphils 0.2 thou/uL (0.0-0.7); #Lymphocytes 1.2 thou/uL (1.20-3.40); #Monocytes 0.6 thou/uL (0.11-0.59); #Neutrophils 6.8 thou/uL (1.40-6.50); %Basophils 0.6 % (0.0-1.0); %Eosinophils 1.9 % (0.0-10.0); %Lymphocytes 13.4 % (21.0-51.0); %Monocytes 7.3 % (0.0-10.0); %Neutrophils 76.8 % (42.0-75.0); Hemoglobin 13.2 g/dL (14.0-18.0); Mean Corpuscular HGB CONC 32.9 g/dL (32.0-36.0); Mean Corpuscular Hemoglobin 30.2 pg (27.0-31.0); Mean Corpuscular Volume 91.6 fL (78.0-98.0); Mean Platelet Volume 7.8 fL (7.4-10.4); Platelet Count 252 thou/uL (130-400); RBC Distribution Width 13.2 % (11.5-14.5); Red Blood Cell (RBC) Count 4.38 mill/uL (4.70-6.10); White Blood Cell (WBC) Count 8.8 thou/uL (4.8-10.8)
[2019-09-02 12:33] LABS: ALT (SGPT) 21 U/L (8-55); AST (SGOT) 18 U/L (5-34); Albumin 3.6 g/dL (3.4-4.8); Alkaline Phosphatase 143 U/L (40-110); Anion Gap 13 mmol/L (10-20); BUN (Urea Nitrogen) 13 mg/dL (8.4-25.7); Bilirubin, Total 0.3 mg/dL (0.2-1.2); Calc. Creatinine Clearance 0 mL/min (70-130); Calcium 8.5 mg/dL (7.8-10.44); Carbon Dioxide 20 mmol/L (23-31); Chloride 110 mmol/L (98-107); Estimated GFR-MDRD 70; Globulin 2.4 g/dL (2.4-3.5); Glucose 111 mg/dL (80-115); Lipase 14 U/L (8-78); Sodium 139 mmol/L (136-145)
[2019-09-02] MEDS ORDERED: Ondansetron ODT 4 MG TAB PO PRN (14:44)
[2019-09-02] MEDS ORDERED: Ondansetron PF 4 MG/2 ML Vial IVP PRN (14:44)
[2019-09-02] MEDS ORDERED: Acetaminophen 325 MG TAB PO PRN (14:44)
[2019-09-02] MEDS ORDERED: Acetaminophen 650 MG Suppository PR PRN (14:44)
[2019-09-02] MEDS ORDERED: Sodium Chloride 0.9% 1,000 ML IV SCH (14:45)
[2019-09-02 15:27] LABS: Troponin I Less than 0.010 ng/mL (< 0.028)
--- NOTE | 2019-09-02 16:18 | HP ---
PRIMARY CARE PHYSICIAN: Dr. Argueta. CHIEF COMPLAINT: "I woke up with chest pain." HISTORY OF PRESENT ILLNESS: Mr. Levy is a 64-year-old gentleman, who complains of chest pain that started at 9 a.m., this morning shortly after waking up. He states he felt fine as soon as he woke up, but once he sat up, he experienced sudden severe substernal chest pain, which he describes as "feeling like someone hit me with a sledgehammer in the center of my chest". The patient states he took nitroglycerin, and the pain resolved for 2 to 3 minutes before it recurred once again. He took 3 doses and states normally he does not require more than 1 dose of nitroglycerin to help ease his chest pain. He states this was different from what he has experienced in the past. States he had some pain radiating into his left shoulder and down his left arm. On arrival to the emergency department, he states the pain had eased and currently rates it 5/10 in severity. Reports having some difficulty taking deep breaths due to the severity of the pain. At present, denies any shortness of breath. Has felt well in recent days. States his only issue has been constipation which has been longstanding for him. He uses stool softeners and is able to have a bowel movement every 2 to 3 days. The patient is known to have coronary artery disease and previously had a CABG as well as stents. He follows with Dr. Lopez. He was last admitted to the hospital in a few weeks ago in July, after presenting with chest pain. He had serial troponins that were negative, and adjustment was made for his isosorbide mononitrate which was increased to 90 mg daily. He was seen by Cardiology and advised to continue Ranexa. He was cleared for discharge home with advice to follow up with Dr. Lopez as an outpatient. REVIEW OF SYSTEMS: The patient reports having a good appetite. No issues with nausea or vomiting. Denies any abdominal pain. At present, he is complaining of pain in both knees due to the stretcher being hung in the ER causing him to have to bend his legs at the knees. Denies having any lower leg swelling or edema. No calf tenderness. Denies having any headaches or dizziness. All other review of systems apart from those mentioned above in the HPI is negative. In the emergency department, he has undergone laboratory studies including an initial troponin which was negative. LFTs and lipase, unremarkable. Full blood count, unremarkable. He has a chest x-ray done, which showed no acute intrathoracic abnormalities. He was treated with 1 inch of nitroglycerin. EKG done in the emergency department showed no ST changes or T-wave abnormalities. The patient has been referred for further monitoring and workup. PAST MEDICAL HISTORY: 1. Coronary artery disease. 2. Hypertension. 3. Hyperlipidemia. 4. Type 2 diabetes mellitus. 5. Anxiety. 6. CKD, stage 2. 7. Mild chronic anemia. 8. GERD. 9. Chronic constipation. PAST SURGICAL HISTORY: 1. CABG in 2013, TOBIN to LAD, SVG to diagonal, SVG to OM, 50% stenosis of RCA; in-stent. 2. Status post RHC in May 2019, by Dr. Aguillon. Advised to continue medical management with Ranexa and Imdur. 3. History of colon resection. SOCIAL HISTORY: The patient lives alone and is fully independent. He states he shares [address] with 2 of his sons. Each has their own home on the same property. He denies any tobacco use. No alcohol consumption. Apparently, he has a history of previous marijuana use. FAMILY HISTORY: Significant for heart disease. ALLERGIES: 1. ZOLPIDEM TARTRATE. 2. MEPERIDINE. 3. PENICILLIN. CURRENT MEDICATIONS: 1. Lisinopril 20 mg twice a day. 2. Pantoprazole 40 mg p.o. daily. 3. Furosemide 20 mg p.o. daily. 4. Plavix 75 mg p.o. daily. 5. Carvedilol 12.5 mg p.o. twice daily. 6. Atorvastatin 40 mg p.o. daily. 7. Tamsulosin 0.4 mg p.o. daily. 8. Pristiq 50 mg p.o. daily. 9. Isosorbide mononitrate 90 mg p.o. daily. 10. Ranexa XR 500 mg p.o. twice daily. 11. Aspirin 81 mg p.o. daily. PHYSICAL EXAMINATION: GENERAL: The patient appears well developed, well nourished, and is in no acute distress. He is found sitting on the stretcher in the ER eating lunch. VITAL SIGNS: Temperature 98.4, blood pressure 125/84, pulse 75, respirations 16 , O2 saturation 98% on room air. HEENT: Normocephalic and atraumatic. Pupils are equal, round, and reactive to light. Sclerae without icterus. Oropharynx is clear. NECK: Supple. No lymphadenopathy. Full range of motion. LUNGS: Clear to auscultation bilaterally without any wheezes, rales, or rhonchi. CARDIAC: Regular rate and rhythm without audible murmurs, rubs, or gallops. No chest wall tenderness with palpation. ABDOMEN: Soft, nontender, and nondistended. Positive bowel sounds present. No guarding or rigidity. No renal angle tenderness. EXTREMITIES: No lower leg swelling or edema. No calf tenderness. Pedal pulses are present, strong and equal bilaterally. NEUROLOGIC: Alert and oriented x3. No neuro deficits on exam. SKIN: Warm and dry. INVESTIGATIONS: As mentioned above in HPI. IMPRESSION AND PLAN: Mr. Levy is a 64-year-old gentleman with a known history of heart disease and hypertension, who has been referred for management of the followin. Acute coronary syndrome rule out. He is known to Dr. Lopez and was last admitted with similar symptoms 1 month ago. At that time, isosorbide mononitrate was increased, and he was advised to continue Ranexa. The patient states he has been compliant with these medication changes. Initial troponin was done and negative. EKG was unremarkable, as well as chest x-ray. We will continue to trend troponins. We will continue his home medications, and a consult should place to Dr. Lopez, who is his flamer sealer. 2. Hypertension. Monitor blood pressure. Resume home medications once verified. 3. Constipation. The patient states he needs normally stool softeners at home, which we will continue. 4. Gastroesophageal reflux disease. We will resume home medication once verified. 5. Deep venous thrombosis prophylaxis with mechanical sequential compression devices. 6. Code status: Full. Surrogate decision maker is his son, Gigi Levy. The patient's case was discussed with attending who agrees with plan of care as described above. Job ID: [id number] [facility]
[2019-09-02 17:24] VITALS: BMI 29.7
[2019-09-02 18:15] LABS: Troponin I Less than 0.010 ng/mL (< 0.028)
[2019-09-02] MEDS ORDERED: Diazepam 5 MG TAB PO PRN (18:53)
[2019-09-02] MEDS ORDERED: Melatonin 3 MG TAB PO PRN (19:41)
[2019-09-02] MEDS: Atorvastatin Calcium 40 MG TAB PO SCH ×2 (20:24→20:28)
[2019-09-02] MEDS: Carvedilol 3.125 MG TAB PO SCH (20:24)
[2019-09-02] MEDS: Clopidogrel Bisulfate 75 MG TAB PO SCH ×2 (20:25→21:17)
[2019-09-02] MEDS ORDERED: Tamsulosin HCl 0.4 MG CAP PO SCH (21:00)
[2019-09-02] MEDS ORDERED: FLU VACC QS2019-20(6MOS UP)/PF 60 MCG/0.5 ML SYRINGE IM ONE (21:00)
[2019-09-02] MEDS ORDERED: Famotidine/PF 20 mg/2ml Vial SLOW IVP SCH (21:00)
[2019-09-03] MEDS: Nitroglycerin 0.4 MG TAB (25 Tab Bottle) SL PRN ×2 (03:58→04:03)
[2019-09-03 05:07] LABS: Anion Gap 13 mmol/L (10-20); BUN (Urea Nitrogen) 10 mg/dL (8.4-25.7); Calc. Creatinine Clearance 121 mL/min (70-130); Calcium 8.1 mg/dL (7.8-10.44); Carbon Dioxide 19 mmol/L (23-31); Chloride 111 mmol/L (98-107); Estimated GFR-MDRD 87; Glucose 95 mg/dL (80-115); Potassium 3.9 mmol/L (3.5-5.1); Sodium 139 mmol/L (136-145)
[2019-09-03 06:11] LABS: #Eosinphils 0.3 thou/uL (0.0-0.7); #Lymphocytes 1.3 thou/uL (1.20-3.40); #Monocytes 0.7 thou/uL (0.11-0.59); #Neutrophils 5.7 thou/uL (1.40-6.50); %Basophils 0.5 % (0.0-1.0); %Eosinophils 3.8 % (0.0-10.0); %Lymphocytes 15.9 % (21.0-51.0); %Monocytes 8.3 % (0.0-10.0); %Neutrophils 71.6 % (42.0-75.0); Hemoglobin 11.7 g/dL (14.0-18.0); Mean Corpuscular HGB CONC 32.4 g/dL (32.0-36.0); Mean Corpuscular Hemoglobin 29.7 pg (27.0-31.0); Mean Corpuscular Volume 91.8 fL (78.0-98.0); Mean Platelet Volume 7.8 fL (7.4-10.4); Platelet Count 241 thou/uL (130-400); RBC Distribution Width 13.3 % (11.5-14.5); Red Blood Cell (RBC) Count 3.92 mill/uL (4.70-6.10); White Blood Cell (WBC) Count 7.9 thou/uL (4.8-10.8)
--- NOTE | 2019-09-03 08:05 | PDOC.CPN ---
- Subjective Date: 09/03/19 Time: 08:12 Interval history: The pt seen and examined. No overnight events. No cardiac complaints. - Objective Allergies/Adverse Reactions: Allergies Allergy/AdvReac Type Severity Reaction Status Date / Time zolpidem tartrate Allergy Intermediate Verified 09/02/19 17:49 [From Ambien] meperidine HCl [From Demerol] Allergy Verified 09/02/19 17:49 Penicillins Allergy Verified 09/02/19 17:49 Visit Medications: Current Medications Acetaminophen (Tylenol) 650 mg PO Q4H PRN PRN Reason: Headache/Fever/Mild Pain (1-3) Last Admin: 09/03/19 03:51 Dose: 650 mg Acetaminophen (Tylenol) 650 mg MO Q4H PRN PRN Reason: Headache/Fever/Mild Pain (1-3) Aspirin (Aspirin Chewable) 81 mg PO DAILY [facility] Atorvastatin Calcium (Lipitor) 40 mg PO HS [facility] Last Admin: 09/02/19 20:28 Dose: Not Given Carvedilol (Coreg) 3.125 mg PO BID [facility] Last Admin: 09/02/19 20:24 Dose: 3.125 mg Clopidogrel Bisulfate (Plavix) 75 mg PO DAILY [facility] Diazepam (Valium) 5 mg PO HS PRN PRN Reason: Anxiety Isosorbide Mononitrate (Imdur Er) 90 mg PO DAILY [facility] Lisinopril (Zestril) 2.5 mg PO DAILY [facility] Melatonin (Melatonin) 3 mg PO HS PRN PRN Reason: Insomnia Last Admin: 09/02/19 23:03 Dose: 3 mg Nitroglycerin (Nitrostat) 0.4 mg SL Q5MIN PRN PRN Reason: Chest Pain Last Admin: 09/03/19 04:03 Dose: 1 tab Ondansetron HCl (Zofran Odt) 4 mg PO Q6H PRN PRN Reason: Nausea/Vomiting Ondansetron HCl (Zofran) 4 mg IVP Q6H PRN PRN Reason: Nausea/Vomiting Pantoprazole Sodium (Protonix) 40 mg PO HS [facility] Last Admin: 09/02/19 20:24 Dose: 40 mg Ranolazine (Ranexa) 1,000 mg PO BID [facility] Sodium Chloride (Flush - Normal Saline) 10 ml IVF Q12HR PRN PRN Reason: Saline Flush Sodium Chloride (Flush - Normal Saline) 10 ml IVF PRN PRN PRN Reason: Saline Flush Tamsulosin HCl (Flomax) 0.4 mg PO DAILY [facility] Venlafaxine HCl (Effexor Xr) 75 mg PO DAILY [facility] Vital Signs & Weight: Vital Signs Temp Pulse Resp BP Pulse Ox 09/03/19 07:49 97.6 F 82 16 157/73 H 97 09/03/19 03:58 97.7 F 82 19 142/77 H 99 09/02/19 23:05 98.1 F 88 17 120/70 99 09/02/19 20:17 98.2 F 91 20 122/54 L 99 Weight 219 lb 8 oz - Physical Exam General: alert & oriented x3 HEENT: mucus membranes moist Neck: supple neck Cardiac: regular rate and rhythm, S1/S2 Lungs: clear to auscultation Neuro: cranial nerve 2-12 intact Abdomen: unremarkable Skin: clear Musculoskeletal: normal range of motion - Labs Result Diagrams: 09/03/19 05:48 09/03/19 04:33 Troponin/CKMB Troponin I Less than 0.010 ng/mL (< 0.028) 09/02/19 17:48 - Telemetry Sinus rhythms and dysrhythmias: sinus rhythm - Assessment/Plan Assessment/Plan: 1. Cp - will increase Ranexa from 500mg to 1000mg BID; cont. Imdur 90mg qd 2. CAD with hx of CABG in 2013 with TOBIN-LAD, SVG-diag, SVG-OM and 50% stenosis in RAC and hx of stent; and S/p LHC in 05/[address] Aguillon; Cont. medical Tx only; Coreg, Lisinopril, Plavix, ASA, and statin 3. HTN - stable 4. HLD - on Statin 5. CKD - stable 6. COPD - stable with RA 7. DM type 2 8. Anxiety MAR reviewed * From Cardiac standpoint, the pt is stable to d/c home with Ranexa 1000mg BID. * The prescription of Ranexa 1000mg BID will be sent from Dr Lopez' office today. Pt. seen and eval. by me. He denies further chest pain. The Ranexa has been increased.. Chest is clear. RRR. I agree wuth the above A/P by the [facility].
[2019-09-03] MEDS ORDERED: Aspirin Chewable 81 MG TAB PO SCH (09:00)
[2019-09-03] MEDS ORDERED: Venlafaxine HCl XR 75 MG CAP PO SCH (09:00)
[2019-09-03] MEDS ORDERED: Tamsulosin HCl 0.4 MG CAP PO SCH (09:00)
[2019-09-03] MEDS ORDERED: Lisinopril 2.5 MG TAB PO SCH (09:00)
[2019-09-03] MEDS ORDERED: Clopidogrel Bisulfate 75 MG TAB PO SCH (09:00)
[2019-09-03] MEDS ORDERED: Isosorbide Mononitrate (ER) 30 MG TAB PO SCH (09:00)
--- NOTE | 2019-09-03 09:21 | DIS ---
DATE OF ADMISSION: 09/02/2019 DATE OF DISCHARGE: 09/03/2019 PRIMARY CARE PHYSICIAN: Birgit Argueta. DISCHARGE DIAGNOSES: 1. Acute on chronic angina/chest pain. 2. Coronary artery disease, status post coronary artery bypass grafting with recent left heart catheterization showing coronary artery disease not amenable to intervention. 3. Hypertension. 4. Hyperlipidemia. 5. Chronic obstructive pulmonary disease without acute exacerbation. 6. Type 2 diabetes mellitus. 7. Anxiety disorder. 8. Chronic constipation. CONSULTATION: Cardiology. HOSPITAL COURSE: A 64-year-old male patient with known history of coronary artery disease, status post CABG and recent left heart catheterization showing disease but not amenable to intervention. The patient was being managed medically with Ranexa and antianginal medications. He presented with acute onset of chest pain, which persisted after 3 sublingual nitroglycerins. Acute myocardial infarction was ruled out with serial troponin. The patient was treated with nitroglycerin and analgesic with improvement. Cardiology consult was obtained, and optimization of medical management was undertaken by increasing Ranexa from 500 b.i.d. to 1000 b.i.d. The patient remained stable and was subsequently discharged home. He was advised to use sublingual nitroglycerin as needed. PHYSICAL EXAMINATION: VITAL SIGNS: Temperature is 97.6, pulse 82, respiratory rate 16, SpO2 of 97 on room air, and blood pressure is 157/73. GENERAL: Obese male, in no distress. Afebrile. Anicteric. Acyanotic. HEENT: Normocephalic, atraumatic. Oral mucosa is moist. NECK: Supple, nontender with no JVD. CARDIOVASCULAR: Regular rhythm and rate with normal heart sounds 1 and 2. RESPIRATORY: Fair air entry bilaterally with no obvious crackles, rhonchi, or use of accessory muscles. GI: Full, soft, nontender, nondistended with normal bowel sounds. EXTREMITIES: Grossly normal looking, atraumatic with no edema or erythema. SUPERVISOR SAWMILL: Conscious, alert, oriented x3 with appropriate mental status. DISCHARGE CONDITION: Improved. DISCHARGE DISPOSITION: Home. DISCHARGE INSTRUCTIONS: 1. Follow up with PCP in 1 week. 2. Follow up with occupational health nurse supervisor in 3 to 4 weeks. 3. The patient was advised to follow diabetic and heart-healthy diet. DISCHARGE MEDICATIONS: 1. Ranexa 1000 mg p.o. b.i.d. 2. Isosorbide mononitrate 90 mg p.o. daily. 3. Flomax 0.4 mg p.o. daily. 4. Protonix 40 mg daily at bedtime. 5. Lisinopril 2.5 mg p.o. daily. 6. Furosemide 20 mg p.o. daily as needed for swelling. 7. Diazepam 5 mg p.o. daily at bedtime p.r.n. 8. p.o. daily. 9. Plavix 75 mg p.o. daily. 10. Carvedilol 3.125 mg p.o. b.i.d. 11. Lipitor 40 mg p.o. daily at bedtime. 12. Aspirin 81 mg p.o. daily. 13. Acetaminophen 325 mg q.6 p.r.n. for pain. Job ID: [id number]
[2019-09-03] MEDS: Carvedilol 3.125 MG TAB PO SCH (09:54)
[2019-09-03 11:56] VITALS: BP 139/84; TEMP 97.5
== END 2019-09-03 13:56 | disposition home or self-care (01) ==
LOC: ERS 10:52 → 2SW 17:21
PROVIDERS: ADMIT Internal Medicine; ATTEND Internal Medicine
DX: I25.119 Atherosclerotic heart disease of native coronary artery with unspecified angina pectoris (principal); I25.84 Coronary atherosclerosis due to calcified coronary lesion; I12.9 Hypertensive chronic kidney disease with stage 1 through stage 4 chronic kidney disease, or unspecified chronic kidney disease; E11.22 Type 2 diabetes mellitus with diabetic chronic kidney disease; N18.2 Chronic kidney disease, stage 2 (mild); E78.5 Hyperlipidemia, unspecified; F41.9 Anxiety disorder, unspecified; J44.9 Chronic obstructive pulmonary disease, unspecified; K59.09 Other constipation; D64.9 Anemia, unspecified; K21.9 Gastro-esophageal reflux disease without esophagitis; Z79.82 Long term (current) use of aspirin; Z79.899 Other long term (current) drug therapy; Z88.0 Allergy status to penicillin; Z88.5 Allergy status to narcotic agent; Z88.8 Allergy status to other drugs, medicaments and biological substances; Z95.1 Presence of aortocoronary bypass graft
CPT/HCPCS: 36415; 36416; 71045; 80048; 80053; 83690; 83735; 83880; 84484; 85025; 90471; 90686; 93005; 96360; 96361; G0008; G0378

== ENCOUNTER 2019-09-05 17:26 | Observation (INO) | payer OTHER ==
[2019-09-05 17:54] LABS: #Eosinphils 0.1 thou/uL (0.0-0.7); #Lymphocytes 1.3 thou/uL (1.20-3.40); #Monocytes 0.5 thou/uL (0.11-0.59); #Neutrophils 7.3 thou/uL (1.40-6.50); %Basophils 0.1 % (0.0-1.0); %Eosinophils 1.5 % (0.0-10.0); %Lymphocytes 13.8 % (21.0-51.0); %Monocytes 5.9 % (0.0-10.0); %Neutrophils 78.8 % (42.0-75.0); Hemoglobin 12.7 g/dL (14.0-18.0); Mean Corpuscular HGB CONC 33.4 g/dL (32.0-36.0); Mean Corpuscular Hemoglobin 30.4 pg (27.0-31.0); Mean Corpuscular Volume 91.1 fL (78.0-98.0); Mean Platelet Volume 7.8 fL (7.4-10.4); Platelet Count 275 thou/uL (130-400); RBC Distribution Width 13.3 % (11.5-14.5); Red Blood Cell (RBC) Count 4.17 mill/uL (4.70-6.10); White Blood Cell (WBC) Count 9.2 thou/uL (4.8-10.8)
--- NOTE | 2019-09-05 18:10 | RAD ---
RADIOGRAPH CHEST 1 VIEW: DATE: 09/05/2019 HISTORY: 64-year-old male with chest pain FINDINGS: There are no airspace densities, pulmonary edema, pneumothorax, or cardiomegaly. The lateral costophr enic angles are sharp. There are sternotomy wires. IMPRESSION: 1. No acute cardiopulmonary findings. 2. Evidence of previous open-heart surgery.
[2019-09-05 18:15] LABS: ALT (SGPT) 18 U/L (8-55); AST (SGOT) 18 U/L (5-34); Albumin 3.6 g/dL (3.4-4.8); Alkaline Phosphatase 134 U/L (40-110); Anion Gap 15 mmol/L (10-20); BUN (Urea Nitrogen) 11 mg/dL (8.4-25.7); Bilirubin, Total 0.5 mg/dL (0.2-1.2); Calc. Creatinine Clearance 0 mL/min (70-130); Calcium 8.5 mg/dL (7.8-10.44); Carbon Dioxide 18 mmol/L (23-31); Chloride 110 mmol/L (98-107); Estimated GFR-MDRD 77; Globulin 2.3 g/dL (2.4-3.5); Glucose 107 mg/dL (80-115); Potassium 4.2 mmol/L (3.5-5.1); Protein, Total 5.9 g/dL (5.8-8.1); Sodium 139 mmol/L (136-145)
[2019-09-05 22:15] LABS: Troponin I 0.074 ng/mL (< 0.028)
[2019-09-05] MEDS ORDERED: Calcium Carbonate 500 MG ChewTAB PO PRN (23:09)
[2019-09-05] MEDS ORDERED: hydrALAZINE 20 MG/ML VIAL SLOW IVP PRN (23:09)
[2019-09-05] MEDS ORDERED: Acetaminophen 500 MG TAB PO PRN (23:09)
[2019-09-05] MEDS ORDERED: Ondansetron PF 4 MG/2 ML Vial IVP PRN (23:09)
[2019-09-05] MEDS ORDERED: Furosemide 20 MG TAB PO PRN (23:09)
[2019-09-05] MEDS ORDERED: Nitroglycerin 0.4 MG TAB (25 Tab Bottle) SL PRN (23:09)
[2019-09-05] MEDS ORDERED: Diazepam 5 MG TAB PO PRN (23:09)
[2019-09-05] MEDS ORDERED: Ondansetron ODT 4 MG TAB PO PRN (23:09)
[2019-09-05 23:29] VITALS: BMI 29.1
[2019-09-06] MEDS: Senokot 8.6 MG TAB PO PRN ×2 (00:09→10:11)
[2019-09-06] MEDS ORDERED: Carvedilol 3.125 MG TAB PO SCH ×2 (00:15→08:00)
[2019-09-06] MEDS ORDERED: Melatonin 3 MG TAB PO SCH (00:15)
--- NOTE | 2019-09-06 00:22 | HP ---
PRIMARY CARE PROVIDER: FERNY Valdes CHIEF COMPLAINT: Chest pain. HISTORY OF PRESENT ILLNESS: This is a 64-year-old male with a known history of coronary artery disease, status post coronary artery bypass grafting in 2013 and most recently undergoing a left heart catheterization in May 2019 with recommendations for medical management. The patient was recently admitted to [facility], 09/02/2019 through 09/03/2019, with recurrent chest pain with an increase in Ranexa to 1000 mg b.i.d. The patient continues on antianginal therapy with isosorbide mononitrate and Coreg. The patient admitted to chest pressure in the central portion of his chest, which made it difficult to catch his breath. The patient denied any injury, cough, fever, or travel history. The patient states this was similar to when he presented to the emergency room on 09/02/2019. The patient took sublingual nitroglycerin with mild relief of his symptoms. In the emergency room, the patient underwent general evaluation with troponin I ranging from 0.010 to 0.074. The patient received aspirin 324 mg and 4 sublingual nitroglycerin. EKG showed sinus tachycardia in the low 100s without acute ST-T wave changes. The patient was referred to the Hospitalist Service for further evaluation. PAST MEDICAL HISTORY: 1. Chronic angina. 2. Coronary artery disease, status post coronary artery bypass grafting with medical management recommended. 3. Hypertension. 4. Hyperlipidemia. 5. Anxiety disorder. 6. Chronic constipation. 7. Chronic kidney disease, stage 2. 8. Chronic normocytic anemia. 9. Gastroesophageal reflux disease. PAST SURGICAL HISTORY: 1. Status post coronary artery bypass grafting in 2013 with TOBIN to LAD, saphenous vein graft to diagonal and saphenous vein graft to obtuse marginal with 50% stenosis of the RCA in-stent. 2. Status post right heart catheterization in May 2019 with recommendations for medical management. 3. Status post colon resection. CURRENT MEDICATIONS: 1. Lisinopril 20 mg p.o. b.i.d. 2. Protonix 40 mg p.o. daily. 3. Lasix 20 mg p.o. daily. 4. Plavix 75 mg p.o. daily. 5. Carvedilol 12.5 mg p.o. b.i.d. 6. Lipitor 40 mg p.o. daily. 7. Tamsulosin 0.4 mg p.o. daily. 8. Pristiq 50 mg p.o. daily. 9. Isosorbide mononitrate 90 mg p.o. daily. 10. Ranexa 1000 mg p.o. b.i.d. 11. Enteric-coated aspirin 81 mg p.o. daily. ALLERGIES: 1. AMBIEN. 2. MEPERIDINE. 3. PENICILLIN. FAMILY HISTORY: Positive for coronary artery disease. SOCIAL HISTORY: The patient resides in [place], [place]. The patient resides near his 2 sons. No tobacco, alcohol, or illicit drug use currently. Remote history of marijuana use. Originally from [place]. REVIEW OF SYSTEMS: CONSTITUTIONAL: Negative for weight loss or gain, ability to conduct usual activities. SKIN: Negative for rash, itching. EYES: Negative for double vision, pain. ENT/MOUTH: Negative for nose bleeding, neck stiffness, pain, tenderness. CARDIOVASCULAR: Negative for palpitations, dyspnea on exertion, orthopnea. RESPIRATORY: Negative for shortness of breath, wheezing, cough, hemoptysis, fever or night sweats. GASTROINTESTINAL: Negative for poor appetite, abdominal pain, heartburn, nausea, vomiting, constipation, or diarrhea. GENITOURINARY: Negative for urgency, frequency, dysuria, nocturia. MUSCULOSKELETAL: Negative for pain, swelling. NEUROLOGIC/PSYCHIATRIC: Negative for anxiety, depression. ALLERGY/IMMUNOLOGIC: Negative for skin rash, bleeding tendency. Otherwise negative except as stated per HPI. PHYSICAL EXAMINATION: VITAL SIGNS: On admission, blood pressure 133/82, pulse 97, respiratory rate 18, temperature 97.6 degrees Fahrenheit, O2 saturation 98% on room air. GENERAL APPEARANCE: This is a 64-year-old male, alert and oriented x3, pleasant, conversant, in no acute distress. HEENT: Pupils are equal, round, reactive to light and accommodation. Extraocular muscles are intact. No scleral icterus. No conjunctival injection. Nares are patent. OP is clear. Teeth in fair repair. NECK: Supple. No cervical adenopathy. No thyromegaly. No carotid bruits. No JVD appreciated. Cervical spine with full active and passive range of motion. No meningeal signs noted. CHEST: Lungs are clear to auscultation bilaterally. CARDIOVASCULAR: S1, S2 without noted murmur, rub, or gallop. ABDOMEN: Rounded, soft, nontender, and nondistended. Bowel sounds are positive in all 4 quadrants. There is no hepatosplenomegaly. No abdominal bruits. No rebound or guarding appreciated. EXTREMITIES: Warm and dry with fair turgor. No clubbing, cyanosis, or asymmetric edema appreciated. Pulses palpable distally at the dorsalis pedis, posterior tibial, and popliteal arteries bilaterally. Capillary refill less than 2 seconds. NEUROLOGIC: Cranial nerves 2 through 12 are grossly intact. No focal or lateralizing signs appreciated. PERTINENT LABORATORY AND X-RAY FINDINGS: Basic metabolic profile within normal limits. Troponin I ranged between 0.010 to 0.074. BNP 47. CBC showed a white blood cell count of 9.2, hemoglobin 13, hematocrit 38, platelet count 275 with 79% neutrophils. Portable chest x-ray dated 09/05/2019, showed no acute cardiopulmonary process. Postsurgical changes consistent with prior coronary artery bypass grafting noted. EKG dated 09/05/2019, by my interpretation shows sinus tachycardia with heart rates in the low 100s. Normal R-wave progression noted in the precordial leads. Normal axis. No acute ST-T wave changes noted. ASSESSMENT AND PLAN: 1. Chest pain. The patient will be observed on the telemetry unit. We will continue Ranexa 1000 mg p.o. b.i.d. Resume Coreg 3.125 mg p.o. b.i.d. Continue dual-antiplatelet therapy with Plavix and aspirin. Continue serial troponin I trending. Continue general medical management. 2. Coronary artery disease, chronic and stable. Resume Coreg, Lipitor, Plavix and aspirin. Continue lisinopril 2.5 mg daily. 3. Anxiety disorder. Continue Pristiq 50 mg p.o. daily. Continue general supportive management. 4. Hypertension. Continue home blood pressure regimen and monitor clinical response. 5. Prophylaxis. SCDs while in bed. Pepcid 20 mg p.o. b.i.d. CODE STATUS: Full. Surrogate medical decision maker is patient's son. Job ID: [id number]
[2019-09-06 01:26] LABS: Anion Gap 12 mmol/L (10-20); BUN (Urea Nitrogen) 13 mg/dL (8.4-25.7); Calc. Creatinine Clearance 96 mL/min (70-130); Calcium 8.5 mg/dL (7.8-10.44); Carbon Dioxide 21 mmol/L (23-31); Chloride 111 mmol/L (98-107); Estimated GFR-MDRD 68; Glucose 135 mg/dL (80-115); Potassium 3.6 mmol/L (3.5-5.1); Sodium 140 mmol/L (136-145)
[2019-09-06 01:27] LABS: Troponin I Less than 0.010 ng/mL (< 0.028)
[2019-09-06 01:27] LABS: Band 2 % (5-11); Eosinophils 1 % (0-10); Hemoglobin 12.3 g/dL (14.0-18.0); Lymphocytes 18 % (21-51); MDiff Complete? YES; Mean Corpuscular HGB CONC 32.2 g/dL (32.0-36.0); Mean Corpuscular Hemoglobin 30.1 pg (27.0-31.0); Mean Corpuscular Volume 93.4 fL (78.0-98.0); Mean Platelet Volume 7.9 fL (7.4-10.4); Monocytes 4 % (0-10); Neutrophil 74 % (42-75); Platelet Count 260 thou/uL (130-400); RBC Distribution Width 13.4 % (11.5-14.5); Red Blood Cell (RBC) Count 4.09 mill/uL (4.70-6.10); White Blood Cell (WBC) Count 10.1 thou/uL (4.8-10.8)
[2019-09-06] MEDS ORDERED: Clopidogrel Bisulfate 75 MG TAB PO SCH (09:00)
[2019-09-06] MEDS ORDERED: Famotidine 20 MG TAB PO SCH (09:00)
[2019-09-06] MEDS ORDERED: Lisinopril 2.5 MG TAB PO SCH (09:00)
[2019-09-06] MEDS ORDERED: Tamsulosin HCl 0.4 MG CAP PO SCH (09:00)
[2019-09-06] MEDS ORDERED: Aspirin Chewable 81 MG TAB PO SCH (09:00)
[2019-09-06] MEDS ORDERED: Venlafaxine HCl XR 75 MG CAP PO SCH (09:00)
[2019-09-06] MEDS ORDERED: Isosorbide Mononitrate (ER) 30 MG TAB PO SCH (09:00)
--- NOTE | 2019-09-06 14:35 | PDOC.PALCO ---
Palliative Care Consult - Consult Details Requesting Physician: Dr Bowden Reason for Consult: goals of care, symptom management Family Members Present: None - Pertinent HPI 64 year old man who had onset of chest pain,. Frequent admissions, last 09/02/19 for chest pain and his Ranexa was increased to 1000 mg po bid. After lengthy discussion patient states yesterday he took his last dose and got "scared" and then had an onset of chest pressure, thus calling 911 for transport to the hospital. After presentation to the emergency room he had no acute ST-T changes with sinus tachy. He was admitted to medical for obs. - Social History Smoking Status: Unknown if ever smoked Smoking: no tobacco exposure Alcohol Use: none Drug Use History: none Living Situation: independent (Lives on property (4 acres) with 2 sons close ) - Medications MAR Reviewed: Yes - Allergies Allergies/Adverse Reactions: Allergies Allergy/AdvReac Type Severity Reaction Status Date / Time meperidine HCl [From Demerol] Allergy Verified 09/05/19 23:32 Penicillins Allergy Verified 09/05/19 23:32 zolpidem tartrate AdvReac Intermediate Verified 09/05/19 23:32 [From Ambien] - Subjective States he was "sleepy" earlier. Negative for chest pain, discomfort, headache, nausea, vomiting, incontinence, muscle weakness, numbness. - Objective Vital Signs: Vital Signs - Most Recent Temp Pulse Resp BP Pulse Ox 97.5 F L 84 14 102/59 L 97 09/06/19 12:00 09/06/19 12:00 09/06/19 12:00 09/06/19 12:00 09/06/19 12:00 Palliative Performance Scale: 50 - Physical Exam Constitutional: NAD Deviation from normal: Poor hygeine HEENT: PERRLA, moist MMs, sclera anicteric, EOMI Respiratory: clear to auscultation bilateral, unlabored breathing Cardiovascular: RRR, no significant murmur Gastrointestinal: soft, non-tender, positive bowel sounds Musculoskeletal: no edema, pulses present Neurological: normal sensation, moves all 4 limbs Lymphatic: no nodes Psychiatric: A&O x 3 Deviation from normal: Flat affect Skin: normal turgor, cap refill <2 seconds - Problem List (1) Palliative care encounter Code(s): Z51.5 - ENCOUNTER FOR PALLIATIVE CARE Current Visit: Yes Status: Acute (2) Anxiety Code(s): F41.9 - ANXIETY DISORDER, UNSPECIFIED Current Visit: Yes Status: Acute (3) Chest pain Code(s): R07.9 - CHEST PAIN, UNSPECIFIED Current Visit: No Status: Acute - Plan/Recommendations Plan: Lengthy discussion with patient. States he is able to make his own breakfast and lunch, and his son cooks his dinner. States his sons roller picker his prescriptions/groceries Transportation for Dr velarde by sons or transit authority States that He has a family friend that works for [employer] that comes if "he needs help" discussed that we need a consistent healthcare presence. Discussed limited options for treatment and disease trajectory related to cardiac disease After discussion patient states he "took his last Ranexa and got scared and called 911" New medications were called in. Discussed with Dr Bowden and Dr Suarez 1) Home Health consult with palliative Care program 2) Lorazepam 1mg PO PRN with chest pain Will try a dose of Lorazepam at the [facility] spa manager/esthetician also visited with patient and will continue to follow. Review Palliative Care RN notes under Notes section [70] minutes spent on this encounter with >50% of the time in counseling and coordination of care. Thank you for this very appropriate consult.
[2019-09-06] MEDS ORDERED: ALPRAZolam 0.25 MG TAB PO SCH (15:00)
[2019-09-06] MEDS ORDERED: Lorazepam 1 MG TAB PO PRN (15:05)
--- NOTE | 2019-09-06 15:29 | PDOC.CPN ---
- Subjective Date: 09/06/19 Time: 15:29 Interval history: The pt seen and examined. No overnight events. No cardiac complaints. - Objective Allergies/Adverse Reactions: Allergies Allergy/AdvReac Type Severity Reaction Status Date / Time meperidine HCl [From Demerol] Allergy Verified 09/05/19 23:32 Penicillins Allergy Verified 09/05/19 23:32 zolpidem tartrate AdvReac Intermediate Verified 09/05/19 23:32 [From Bony] Visit Medications: Current Medications Acetaminophen (Tylenol) 1,000 mg PO Q6H PRN PRN Reason: Mild Pain (1-3) Alprazolam (Xanax) 0.25 mg PO NOW [facility] Stop: 09/06/19 17:00 Aspirin (Aspirin Chewable) 81 mg PO DAILY [facility] Last Admin: 09/06/19 08:36 Dose: 81 mg Atorvastatin Calcium (Lipitor) 40 mg PO [facility] Calcium Carbonate (Tums) 1,000 mg PO Q4H PRN PRN Reason: Heartburn or Indigestion Carvedilol (Coreg) 3.125 mg PO BID-[facility] Last Admin: 09/06/19 09:55 Dose: 3.125 mg Clopidogrel Bisulfate (Plavix) 75 mg PO DAILY [facility] Last Admin: 09/06/19 08:36 Dose: 75 mg Diazepam (Valium) 5 mg PO HSPRN PRN PRN Reason: Anxiety Furosemide (Lasix) 20 mg PO DAILY PRN PRN Reason: Swelling Hydralazine HCl (Apresoline) 10 mg SLOW IVP Q4H PRN PRN Reason: SBP > 180 and HR < 70 Isosorbide Mononitrate (Imdur Er) 90 mg PO DAILY [facility] Last Admin: 09/06/19 10:11 Dose: 90 mg Lisinopril (Zestril) 2.5 mg PO DAILY [facility] Last Admin: 09/06/19 09:30 Dose: Not Given Lorazepam (Ativan) 1 mg PO Q4H PRN PRN Reason: Anxiety/Agitation Nitroglycerin (Nitrostat) 0.4 mg SL Q5MIN PRN PRN Reason: Chest Pain Ondansetron HCl (Zofran Odt) 4 mg PO Q6H PRN PRN Reason: Nausea/Vomiting Ondansetron HCl (Zofran) 4 mg IVP Q6H PRN PRN Reason: Nausea/Vomiting Pantoprazole Sodium (Protonix) 40 mg PO HS [facility] Ranolazine (Ranexa) 1,000 mg PO BID [facility] Last Admin: 09/06/19 08:36 Dose: 1,000 mg Senna (Senokot) 1 tab PO BIDPRN PRN PRN Reason: Constipation Last Admin: 09/06/19 10:11 Dose: 1 tab Tamsulosin HCl (Flomax) 0.4 mg PO DAILY [facility] Last Admin: 09/06/19 08:36 Dose: 0.4 mg Venlafaxine HCl (Effexor Xr) 75 mg PO DAILY [facility] Last Admin: 09/06/19 08:36 Dose: 75 mg Vital Signs & Weight: Vital Signs Temp Pulse Resp BP BP Pulse Ox 09/06/19 12:00 97.5 F L 84 14 102/59 L 97 09/06/19 09:50 83 128/75 09/06/19 09:30 84 09/06/19 08:30 85 108/56 L 09/06/19 07:55 98.3 F 84 18 82/47 L 96 09/06/19 05:00 98.0 F 83 16 96/53 L 97 Weight 215 lb - Physical Exam General: alert & oriented x3 HEENT: mucus membranes moist Neck: supple neck Cardiac: regular rate and rhythm, S1/S2 Lungs: clear to auscultation, decreased breath sounds Abdomen: unremarkable Skin: clear Musculoskeletal: decreased range of motion - Labs Result Diagrams: 09/06/19 00:55 09/06/19 00:55 Troponin/CKMB Troponin I Less than 0.010 ng/mL (< 0.028) 09/06/19 00:51 - Telemetry Sinus rhythms and dysrhythmias: sinus rhythm - Assessment/Plan Assessment/Plan: 1. CP - the pt reported that he cont. taking Ranexa 500mg instead of 1000mg BID ; Per the pt, his son will pickle processor the prescription of Ranexa 1000mg BID today 2. CAD with hx of CABG in 2013 and s/p LHC in 05/2019 with medical tx only - cont Coreg, lisinopril, statin, plavix, and ASA 3. HTN 4. HLD 5. CKD 6. COPD - 7. DM type 2 - 8. Anxiety MAR reviewed * from Cardiac standpoint, the pt is stable to d/c home * HH will f/u with the pt at home * The pt will f/u with Dr Lopez' office within 2 wks. pt. seen and eval. by me. I agre with the a/P by the [employer]UB[employer]ING [employer]ENDER. He actually had not been taking the Ranexa as ordered. His EKG and CIE's are unchanged. He is pain free. Chest clear. RRR. Okay to d/c to home.
[2019-09-06] MEDS ORDERED: ALPRAZolam 0.25 MG TAB PO PRN ×2 (16:06→17:06)
--- NOTE | 2019-09-06 16:20 | PDOC.HOSPP ---
- Subjective Encounter Date: 09/06/19 Encounter Time: 16:16 Subjective: Pt seen for followup re: chest pain. Feels slighlty better. No fevers. - Objective Vital Signs & Weight: Vital Signs (12 hours) Temp Pulse Resp BP BP Pulse Ox 09/06/19 12:00 97.5 F L 84 14 102/59 L 97 09/06/19 09:50 83 128/75 09/06/19 09:30 84 09/06/19 08:30 85 108/56 L 09/06/19 07:55 98.3 F 84 18 82/47 L 96 09/06/19 05:00 98.0 F 83 16 96/53 L 97 Weight Weight 215 lb I&O: 09/05/19 09/06/19 09/07/19 06:59 06:59 06:59 Intake Total 200 Balance 200 Result Diagrams: 09/06/19 00:55 09/06/19 00:55 Additional Labs: labs and MARs reviewed by me EKG Reviewed by me: Yes (Tele: NSR) Hospitalist ROS - Review of Systems Cardiovascular: reports: chest pain. denies: palpitations, orthopnea, paroxysmal noc. dyspnea, edema, light headedness Gastrointestinal: denies: nausea, vomiting, abdominal pain, diarrhea, constipation, melena, hematochezia - Medication Medications: Active Medications Generic Name Dose Route Start Last Admin Trade Name Freq PRN Reason Stop Dose Admin Alprazolam 0.25 mg 09/06/19 15:00 09/06/19 15:31 Xanax PO 09/06/19 17:00 0.25 mg NOW [facility] Administration Aspirin 81 mg 09/06/19 09:00 09/06/19 08:36 Aspirin Chewable PO 81 mg DAILY [facility] Administration Carvedilol 3.125 mg 09/06/19 08:00 09/06/19 09:55 Coreg PO 3.125 mg BID-[facility] AGATA Administration Clopidogrel Bisulfate 75 mg 09/06/19 09:00 09/06/19 08:36 Plavix PO 75 mg DAILY [facility] Administration Isosorbide Mononitrate 90 mg 09/06/19 09:00 09/06/19 10:11 Imdur Er PO 90 mg DAILY [facility] Administration Lisinopril 2.5 mg 09/06/19 09:00 09/06/19 09:30 Zestril PO Not Given DAILY AGATA Ranolazine 1,000 mg 09/06/19 09:00 09/06/19 08:36 Ranexa PO 1,000 mg BID AGATA Administration Senna 1 tab 09/06/19 00:03 09/06/19 10:11 Senokot PO 1 tab BIDPRN PRN Administration Constipation Tamsulosin HCl 0.4 mg 09/06/19 09:00 09/06/19 08:36 Flomax PO 0.4 mg DAILY [facility] Administration Venlafaxine HCl 75 mg 09/06/19 09:00 09/06/19 08:36 Effexor Xr PO 75 mg DAILY [facility] Administration - Exam General Appearance: NAD Eye: anicteric sclera ENT: moist mucosa Heart: RRR, no rubs Respiratory: CTAB Gastrointestinal: soft Extremities: no cyanosis Skin: no rashes Psychiatric: normal affect, normal behavior Hosp A/P (1) Chest pain Code(s): R07.9 - CHEST PAIN, UNSPECIFIED Status: Acute (2) CAD (coronary artery disease) Code(s): I25.10 - ATHSCL HEART DISEASE OF [place] CORONARY ARTERY W/O ANG PCTRS Status: Chronic (3) Dyslipidemia Code(s): E78.5 - HYPERLIPIDEMIA, UNSPECIFIED Status: Chronic (4) Hypertension Code(s): I10 - ESSENTIAL (PRIMARY) HYPERTENSION Status: Chronic (5) Obesity Code(s): E66.9 - OBESITY, UNSPECIFIED Status: Chronic - Plan Trial PRN xanax for anxiety. for palliative care at home. Appreciate cardiology and palliative care services input. Medical management for CAD.
[2019-09-06 16:26] VITALS: BP 144/79; TEMP 97.9
[2019-09-06] MEDS ORDERED: Atorvastatin Calcium 40 MG TAB PO SCH (21:00)
--- NOTE | 2019-09-07 01:28 | DIS ---
DATE OF ADMISSION: 09/05/2019 DATE OF DISCHARGE: 09/06/2019 PRIMARY CARE PROVIDER: FERNY Valdes. DISCHARGE DIAGNOSES: 1. Chest pain. 2. Chest pain most likely secondary to cardiac etiology. CONSULTATIONS DURING THIS HOSPITALIZATION: 1. Cardiology, Dr. Lopez. 2. Palliative Care Service. CONDITION OF PATIENT ON THE DAY OF DISCHARGE: Stable. I assessed Mr. Levy on the day of discharge. He reports chest pain is better. Vital signs are stable. S1 and S2 are heard, regular. Lungs are clear to auscultation bilaterally. DISCHARGE MEDICATIONS: The patient has been started on Xanax 0.25 mg two times a day as needed, prescription for 15 doses to be dispensed. Otherwise, no change was made to his pre-admission home medications as dictated by Dr. Dennis in his history and physical note dated September 05, 2019. HOSPITAL COURSE: Mr. Levy is a pleasant 64-year-old gentleman, who was admitted to [facility] on September 05, 2019, for chest pain in the context of known coronary artery disease being managed medically. He was seen by Cardiology and Palliative Care Services. He has been started on p.r.n. Xanax. He is being discharged home. Arrangements are being made for home health for palliative care. Many thanks for allowing me to participate in Mr. Levy's care. Please feel free to contact me with any questions or concerns. Post discharge followup: With primary care provider in 3 days' time. DISCHARGE DESTINATION: Home. Job ID: [id number]
== END 2019-09-06 17:41 | disposition home or self-care (01) ==
LOC: ERS 17:26 → 2SW 21:30
PROVIDERS: ADMIT Family Medicine; ATTEND Family Medicine
DX: R07.89 Other chest pain (principal); I25.119 Atherosclerotic heart disease of native coronary artery with unspecified angina pectoris; E78.5 Hyperlipidemia, unspecified; F41.9 Anxiety disorder, unspecified; K59.09 Other constipation; K21.9 Gastro-esophageal reflux disease without esophagitis; I12.9 Hypertensive chronic kidney disease with stage 1 through stage 4 chronic kidney disease, or unspecified chronic kidney disease; E11.22 Type 2 diabetes mellitus with diabetic chronic kidney disease; N18.2 Chronic kidney disease, stage 2 (mild); J44.9 Chronic obstructive pulmonary disease, unspecified; I25.2 Old myocardial infarction; E66.9 Obesity, unspecified; Z68.29 Body mass index [BMI] 29.0-29.9, adult; Z85.038 Personal history of other malignant neoplasm of large intestine; Z79.02 Long term (current) use of antithrombotics/antiplatelets; Z79.82 Long term (current) use of aspirin; Z79.899 Other long term (current) drug therapy; Z88.0 Allergy status to penicillin; Z88.6 Allergy status to analgesic agent; Z88.8 Allergy status to other drugs, medicaments and biological substances; Z51.5 Encounter for palliative care; Z95.1 Presence of aortocoronary bypass graft
CPT/HCPCS: 36415; 71045; 80048; 80053; 83880; 84484; 85007; 85025; 85027; 93005; 94760; G0378